=== PATIENT | male | born 1940 | race Caucasian/White ===

== ENCOUNTER 2025-05-15 13:51 | Inpatient (IN) | payer MEDICARE, SELFPAY ==
[2025-05-15 14:42] VITALS: BP 145/67; PULSE 66; RESP 18; TEMP 36.9; O2SAT 90
[2025-05-15] MEDS: prednisoLONE eye drops (5 mL) 1 DROP OPTH.BTL 1 DRP LEFT EYE ×2 (18:03→21:42)
[2025-05-15] MEDS: Sodium Chloride 15ML DROPS 1 DRP LEFT EYE ×2 (18:33→21:42)
--- NOTE | 2025-05-15 18:33 | HP.PCM_ITS ---
HPI - General General Date of Admission: 05/15/25 Date of Service: 05/15/25 Chief Complaint: Here for rehabilitation. HPI Narrative HEATHER FRIAS, is a 84 Male who presents with followin04/27/2025 CT head concerning for NPH, MRI brain with CSF flow study planned for evaluation of NPH. 05/07/2025 Admit to [facility] with failure to thrive. Admit to NICU with left inferior basal ganglion ICH, progressive decline, decreasing function, inability to rise from couch for days to weeks. Worsening confusion, word finding, difficulty. CT head showed small left interior basal ganglion ICH without IVH or significant midline shift. Bilateral lower extremity weakness, impaired balance. Consult neurosurgery, IV fluids, IV Labetalol. No falls, no head trauma, no seizure activity. TTE with bubble study, NPO pending swallow study. Hold DVT prophylaxis, Hold Plavix for ICH. PT/OT/CM. Normal saline IV for hyponatremia. LDL 60, A1c 5.5. 05/06/2025 CT head small left basal ganglion ICH. 05/06/2025 CTA head and neck no stenosis. 05/07/2025 CT head, CTA head ICH unchanged. 05/07/2025 MRI brain evolving small hematoma in the posterior medial left orbital frontal region with similar imaging findings also seen on CT brain. Mild local mass effect, concerning for NPH. Echo LVEF 57%. Bubble study positive. Aorta dilated 4.1cm. Mild aortic regurgitation. 05/12/2025 Sodium 129, managed with 1 liter fluid restriction. Patient full code, not interested in palliative care. 05/12/2025 CT head ICH improved, possible NPH. 05/12/2025 Hold Plavix, restart Aspirin. MRI brain with CSF flow study showed possible NPH> Patient would like SNF rehab, goal of going home. 05/13/2025 Sodium 126, consult Medicine. Pre-CERT for TCU. Check urinalysis for frequency of urination to rule out urinary tract infection. Slept poorly, refusing hypnotics. 05/14/2025 Hold Plavix. Follow up with neurology for possible NPH. Gabapentin 100mg q12 for restless leg syndrome. 1 liter fluid restriction for hyponatremia 2/2 siadh. Etiology likely ischemic stroke with hemorrhagic transformation. 05/15/2025 Admit to TCU with debility, here for rehabilitation, strengthening, prior to discharge home with /son. Kelton Nolasco present at time of interview. MARGIE Baker present at time of interview. [facility] Medical History (Updated 05/15/25 @ 18:[address] Kimo Partida MD) GERD (gastroesophageal reflux disease) Irritable bowel syndrome Hiatal hernia Glaucoma Anemia Cervical spinal stenosis Parkinsonism NPH (normal pressure hydrocephalus) Hyponatremia ICH (intracerebral hemorrhage) Ischemic stroke Debility Home Medications ?Medication ?Instructions ?Recorded ?Last Taken ?Type acetaminophen 325 mg tablet 325 mg PO Q6H PRN pain (sc randy 05/15/25 Unknown History score 1-10) aspirin 81 mg tablet 81 mg PO DAILY blood thinner 05/15/25 Unknown History brimonidine 0.2 %-timolol 0.5 % 1 drp RIGHT EYE Q8 pre ssure in eye 05/15/25 Unknown History eye drops (Combigan) calcium carbonate (Tums) 200 mg PO DAILY PRN dyspepsi a 05/15/25 Unknown History cholecalciferol (vitamin D3) 25 25 mcg PO DAILY supple ment 05/15/25 Unknown History mcg (1,000 unit) capsule cyanocobalamin (vitamin B-12) 50 50 mcg PO DAILY suppl ement 05/15/25 Unknown History mcg tablet (Vitamin B-12) diphenhydramine-zinc acetate 1 1 applic topical Q8H ra sh 05/15/25 Unknown History %-0.1 % topical cream (Anti-Itch (diphenhydramine) with Zinc) gabapentin 100 mg capsule 100 mg PO BID pain 05/15/25 Unknown History heparin (porcine) 5,000 unit/mL 5,000 unit subcut Q8H blood thinner 05/15/25 Unknown History injection solution melatonin 3 mg capsule 3 mg PO QHS PRN sleep Unknown History multivitamin 1 tab PO DAILY supplement Unknown History nitroglycerin 0.4 mg sublingual 0.4 mg sublingual Q5M chest pain 05/15/25 Unknown History tablet pantoprazole 40 mg tablet,delayed 40 mg PO BID reflux 05/15/25 Unknown History release polyvinyl alcohol 1.4 % eye drops 1 drp EACH EYE Q6H P RN dry eyes 05/15/25 Unknown History (Artificial Tears (polyvinyl alcohol)) prednisolone acetate 1 % eye 1 drp LEFT EYE Q6H inflam mation 05/15/25 Unknown History drops,suspension (Pred Forte) psyllium 1 packet PO DAILY bowels Unknown History sodium chloride 1,000 mg soluble 1,000 mg PO BID suppl ement 05/15/25 Unknown History tablet sodium chloride 5 % eye drops 1 drp LEFT EYE 4X/DAY dr jake eyes 05/15/25 Unknown History (Obed 128) tamsulosin 0.4 mg capsule 0.4 mg PO DAILY bladder 04/18 Unknown History trazodone 50 mg tablet 50 mg PO QHS sleep 05/15/25 Unknown History triamcinolone acetonide 0.1 % applic topical BID PRN P RN itch 05/15/25 Unknown History topical cream vitamin B complex (B-Complex 1 tab PO DAILY supplement 05/15/25 Unknown History tablet) Allergy/AdvReac Type Severity Reaction Status Date / Time oxycodone AdvReac mental Verified 05/15/25 15:46 status change tramadol AdvReac Mental Verified 05/15/25 15:46 Status Change Surgical History (Updated 05/15/25 @ 18:[address] Kimo Partida MD) History of total bilateral knee replacement History of glaucoma History of esophagogastroduodenoscopy (EGD) History of colonoscopy Social History (Updated 05/15/25 @ 18:[address] Kimo Partida MD) household members: spouse and other details: son Gaurav lives with them. Smoking Status: Never smoker alcohol intake: never substance use type: does not use ROS Constitutional Constitutional: Reports weakness; Denies chills, fever(s) or weight gain ENT HEENT: Denies headache(s), nasal congestion or nasal discharge Cardiovascular Cardiovascular: Denies chest pain or palpitations Respiratory/Chest Respiratory/Chest: Denies cough, excessive phlegm production or shortness of breath with exertion Gastrointestinal Gastrointestinal: Denies abdominal pain, nausea or vomiting Genitourinary Genitourinary: Denies dysuria Musculoskeletal Musculoskeletal: Denies joint pain or joint swelling Integumentary Integumentary: Denies rash or wounds Neurologic Neurologic: Denies focal weakness, numbness or tingling Psychiatric Psychiatric: Denies anxiety, auditory hallucinations, depression, homicidal ideation or suicidal ideation Vital Signs Vital Signs Vital Signs: 05/15/25 14:42 05/15/25 14:42 Temperature 98.5 F Temperature Source Oral Pulse Rate 66 Pulse Rhythm Regular Pulse Strength Normal (2+) Respiratory Rate 18 18 Respiratory Effort Normal Non-Labored Respiratory Depth Normal Respiratory Pattern Normal Blood Pressure 145/67 H Blood Pressure Mean 93 Blood Pressure Source Monitor Blood Pressure Position Supine Blood Pressure Location Left Arm Pulse Ox 90 Oxygen Delivery Method Room Air Room Air Physical Exam Const Constitutional Narrative: Sleepy, but arouses easily. General Appearance: cooperative HEENT normocephalic Eyes PERRL and EOMs intact bilaterally Neck supple, no JVD and no carotid bruits Resp normal respiratory effort, normal air movement and clear to auscultation bilaterally Cardio regular rate and regular rhythm GI normal to inspection, nondistended, normoactive bowel sounds, non-tender and non-distended Extremity normal capillary refill General Extremity: Negative for edema Skin no rashes or lesions noted General Skin Exam: no breakdown Psych affect normal Appearance: appropriate Assessment & Plan Assessment/Plan (1) Debility: (2) Ischemic stroke: (3) ICH (intracerebral hemorrhage): (4) Hyponatremia: (5) NPH (normal pressure hydrocephalus): (6) Parkinsonism: (7) Cervical spinal stenosis: (8) Anemia: (9) Glaucoma: (10) Hiatal hernia: (11) Irritable bowel syndrome: (12) GERD (gastroesophageal reflux disease): PLAN: Plan 84 year old male with below past medical history hospitalized for failure to thrive 2/2 stroke, ich, complicated by hyponatremia, possible NPH, admitted to TCU with debility, here for rehabilitation, strengthening, prior to discharge home with and son. * Debility - PT/OT. * Pain - Tylenol 325mg q6 prn. * Bowel - Metamucil 1 packet daily. * Adult immunization - Administer pneumonia vaccine, covid vaccine, flu vaccine as appropriate. * DVT prophylaxis - Lovenox 40mg sc daily. * NPH- follow up with Neurology after discharge. * Stroke - Aspirin 81mg daily. * Glaucoma - Brimonidine 1gtt od q8, Timoptic 1gtt od q8. * GERD - Pantoprazole 40mg daily, TUMS 500mg daily prn. * Dry eyes - Artificial tears 1gtt ou q6, Sodium chloride 1gtt os qid. * Vitamin D deficiency - D3 25mcg daily. * Neuropathy - Gabapentin 100mg bid. * Insomnia - Melatonin 3mg qhs. * Nutrition - MVI 1 tablet daily. * Coronary artery disease - NTG 0.4mg sl q5m prn. * Eye inflammation - Prednisolone 1gtt os qid. * Hyponatremia - Sodium chloride 1gm bid, fluid restriction. * BPH - Tamsulosin 0.4mg bid. * Skin irritation - Kenalog cream topical bid prn. * Leg cramps - Vitamin B complex 1 tablet daily. The following psychotropic medication was present on admission: Trazodone 50mg qhs. Psychotropic medication therapy is indicated for a diagnosis of: Insomnia. Based on my clinical evaluation, continuation of the medication is necessary at this time. Gradual dose reduction plan (select one): ____ GDR will be attempted. Will monitor patient symptoms and behaviors in response to GDR. __x__ GRD contraindicated. 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 The following psychotropic medication is being started or the dose in being increased: Mirtazapine 7.5mg qhs. Psychotropic medication therapy is indicated for a diagnosis of: Depression/appetite loss/insomnia. In my professional judgement, medication is necessary because the resident?s symptoms cause significant distress to the resident or a danger to the resident or others. Evaluation for underlying causes including medical illness and pain has been considered. The benefits of the medication are felt to outweigh potential harm. Nonpharmacologic/behavior interventions have been attempted but have not been effective or nonpharmacologic interventions are contraindicated for this patient. Potential benefits and risks of treatment and alternatives have been reviewed with resident/family and the resident/family have accepted psychotropic med ication treatment. Please see nursing documentation.
[2025-05-15 20:41] VITALS: PULSE 76; O2SAT 94
[2025-05-15] MEDS: Heparin Injection (Vial) 5,000 UNIT/ML VIAL 5000 UNIT SC (21:38)
[2025-05-15] MEDS: Timolol 0.5% 5ML OPTH.BTL 1 DRP RIGHT EYE (21:42)
[2025-05-15] MEDS: BRIMONIDINE 0.2% 5ML BOTTLE 1 DRP RIGHT EYE (21:42)
[2025-05-16 02:31] VITALS: PULSE 70; RESP 16; O2SAT 95
[2025-05-16] MEDS: BRIMONIDINE 0.2% 5ML BOTTLE 1 DRP RIGHT EYE ×3 (06:44→22:38)
[2025-05-16] MEDS: Heparin Injection (Vial) 5,000 UNIT/ML VIAL 5000 UNIT SC (06:44)
[2025-05-16] MEDS: Timolol 0.5% 5ML OPTH.BTL 1 DRP RIGHT EYE ×3 (06:44→22:39)
[2025-05-16 07:28] LABS: Hematocrit 35.2 % (40-54); Hemoglobin 11.9 g/dL (13.0-16.5); Immature Granulocytes Count 0.030 X10^3/uL (0.0-0.0); Mean Corp Hgb Conc 33.8 g/dL (32-36); Mean Corpuscular Volume 93.4 fL (80-94); Mean Platelet Vol. 9.0 fl (6.2-12.0); NRBC Flagged by Analyzer 0 % (0-5); Platelet Count 365 K/mm3 (150-450); RBC Distribution Width CV 13.2 % (11.6-14.6); RBC Distribution Width SD 45.2 fl (35.1-43.9); Red Blood Count 3.77 M/mm3 (4.6-6.2); White Blood Count 7.9 K/mm3 (4.4-11.0)
[2025-05-16 08:25] LABS: Anion Gap 7 (5-15); BUN 20 mg/dL (4-19); BUN/Creat Ratio 32.3 RATIO (10-20); Calcium,Total 9.2 mg/dL (7.6-11.0); Carbon Dioxide 27.1 mmol/L (21.0-32.0); Chloride 97 mmol/L (98-108); Glucose 99 mg/dL (70-99); Potassium 4.2 mmol/L (3.3-5.1)
--- NOTE | 2025-05-16 09:50 | CASEMGMT ---
Social Work SW presented to room to complete initial assessment. Introduced self and role. Son, Gaurav, at bedside and pt granted permission to speak with son, as he was very tired. Pt answered pt specific questions before falling asleep. Verified contacts. Pt confirmed code status as full code. SW educated to [facility] insurance and review process, with 3-day notice issued with DC date. SW spoke with son at length. Son was very knowledgeable and provided PMH. Son stated they were searching for a new PCP. SW provided HealthCare Provider Directory. At this time, Dr. Partida entered room to complete assessment. Dr. Partida offered to be pt's new PCP, if he chooses. After Dr. Partida exiting, SW finished answering son's questions. SW broached possible depression and SW will monitor for possible intervention, as pt has been increasingly tired, sleeping during the day, not sleeping well at night, poor appetite, and loss of motivation and interest in doing things. Son noted that prior to DC, PA from previous hospital mentioned medication like Remeron. Son was agreeable to that intervention. SW to update the Dr. Melara appreciative. SW will continue to follow. - SW provided update to and inquired about possible sleep apnea. Olivia Colon PRESSURE WELDER ADVERTISING COLUMNIST
[2025-05-16 10:56] VITALS: BMI 20.5
[2025-05-16 11:08] VITALS: BP 102/60; PULSE 110; RESP 16; TEMP 36.4; O2SAT 95
[2025-05-16] MEDS: Aspirin E.C. 81 MG Tablet PO (11:13)
[2025-05-16] MEDS: Sodium Chloride 15ML DROPS 1 DRP LEFT EYE ×4 (11:13→20:21)
[2025-05-16] MEDS: Vitamin B Comp W-C Capsule 1 CAP PO (11:14)
[2025-05-16] MEDS: prednisoLONE eye drops (5 mL) 1 DROP OPTH.BTL 1 DRP LEFT EYE ×4 (11:14→20:10)
[2025-05-16] MEDS: Cholecalciferol (VIT D3) 25 MCG TABLET (1,000 UNITS) PO (11:15)
[2025-05-16] MEDS: Psyllium 1 PACKET PO (11:15)
[2025-05-16] MEDS: Tuberculin,Purif.prot.deriv. 50 TU/ML Vial 0.1 ML ID (13:35)
--- NOTE | 2025-05-16 14:56 | PHA.CONS_ITS ---
Documented by User: Mandeep Feliciano 05/16/25 15:20 TCU RX Drug Regimen Review Subjective/Objective Subjective/Objective Subjective: TCU admission note. 84 year old male with below past medical history hospitalized for failure to thrive 2/2 stroke, ich, complicated by hyponatremia, possible NPH, admitted to TCU with debility, here for rehabilitation, strengthening, prior to discharge home with and son. Objective: Allergies oxycodone Adverse Reaction (Verified 05/15/25 15:46) mental status change tramadol Adverse Reaction (Verified 05/15/25 15:46) Mental Status Change Current Medications Generic Name Dose Route Start Last Admin Trade Name Freq PRN Reason Stop Dose Admin Acetaminophen 325 mg 05/15/25 15:04 Acetaminophen 325 Mg Tablet PO Q6H PRN pain (scale score 1-10) Artificial Tears 1 drp 05/15/25 16:02 Carboxymethylcellulose Sodium 1 Drp Drops OPHTHALMIC Q6H PRN dry eyes Aspirin 81 mg 05/16/25 08:00 05/16/25 11:13 Aspirin E.C. 81 Mg Tablet PO 81 mg BREAKFAST NICA Administration Brimonidine Tartrate 1 drp 05/15/25 22:00 05/16/25 13:43 Brimonidine 0.2% 5ml Bottle RIGHT EYE 1 drp Q8 NICA Administration Calamine/Phenol 1 applic 05/15/25 22:00 05/16/25 11:14 Menthol/Lanolin/Calamine/Znox 113 Gm Tube TOPICAL 1 applic BID NICA Administration Protocol Calcium Carbonate 500 mg 05/15/25 15:04 Calcium Carbonate 500 Mg Tablet PO DAILY PRN DYSPEPSIA Cholecalciferol 25 mcg 05/16/25 10:00 05/16/25 11:15 Cholecalciferol (Vit D3) 25 Mcg Tablet (1,000 Units) PO 25 mcg DAILY NICA Administration Enoxaparin Sodium 40 mg 05/16/25 11:00 05/16/25 13:35 Enoxaparin 40 Mg/0.4 Ml Syringe SC 40 mg DAILY@0600 NICA Administration Gabapentin 100 mg 05/15/25 22:00 05/16/25 11:24 Gabapentin 100 Mg Capsule PO 100 mg BID NICA Administration Melatonin 3 mg 05/15/25 15:04 Melatonin 3 Mg Tablet PO QHS PRN SLEEP Mirtazapine 7.5 mg 05/15/25 22:00 05/15/25 21:40 Mirtazapine 15 Mg Tablet PO 7.5 mg QHS NICA Administration Multivitamins 1 tablet 05/16/25 08:00 05/16/25 11:13 Multivitamins,Therapeutic Tablet PO 1 tablet DAILYCM NICA Administration Multivitamins 1 cap 05/16/25 10:00 05/16/25 11:14 Vitamin B Comp W-C Capsule PO 1 cap DAILY NICA Administration Nitroglycerin 0.4 mg 05/15/25 18:56 Nitroglycerin (Inpatient Use) 0.4 Mg Tab.Subl SL Q5M PRN CARDIAC/CHEST PAIN Pantoprazole Sodium 40 mg 05/16/25 10:00 05/16/25 11:15 Pantoprazole Sodium 40 Mg Tablet PO 40 mg DAILY NICA Administration Prednisolone Acetate 1 drp 05/15/25 16:00 05/16/25 13:36 Prednisolone Eye Drops (5 Ml) 1 Drop Opth.Btl LEFT EYE 1 drp 0800,1200,1600,2000 NICA Administration Psyllium Hydrophilic Mucilloid 1 packet 05/16/25 10:00 05/16/25 11:15 Psyllium 1 Packet PO 1 packet DAILY NICA Administration Sodium Chloride 10 - 40 ml 05/15/25 15:04 0.9% Saline Lock 10 Ml Syringe IV UD PRN SALINE FLUSH Sodium Chloride 1 drp 05/15/25 16:00 05/16/25 13:36 Sodium Chloride 15ml Drops LEFT EYE 1 drp 0800,1200,1600,2000 NICA Administration Sodium Chloride 1 gm 05/15/25 22:00 05/16/25 11:15 Sodium Chloride 1 Gm Tablet PO 1 gm BID NICA Administration Tamsulosin HCl 0.4 mg 05/16/25 10:00 05/16/25 11:14 Tamsulosin Hcl 0.4 Mg Capsule PO 0.4 mg DAILY NICA Administration Timolol Maleate 1 drp 05/15/25 22:00 05/16/25 13:43 Timolol 0.5% 5ml Opth.Btl RIGHT EYE 1 drp Q8 NICA Administration Trazodone HCl 50 mg 05/15/25 22:00 05/15/25 21:39 Trazodone 50 Mg Tablet PO 50 mg QHS NICA Administration Triamcinolone Acetonide 0.1 applic 05/15/25 15:09 Triamcinolone Acetonide 0.1% Cream 15 Gm TOPICAL BID PRN PRN itch Protocol Tuberculin PPD 0.1 ml 05/23/25 10:00 Tuberculin,Purif.Prot.Deriv. 50 Tu/Ml Vial ID 05/23/25 10:01 X1 ONE Problem List GERD (gastroesophageal reflux disease) (Acute) Irritable bowel syndrome (Acute) Hiatal hernia (Acute) Glaucoma (Acute) Anemia (Acute) Cervical spinal stenosis (Acute) Parkinsonism (Acute) NPH (normal pressure hydrocephalus) (Acute) Hyponatremia (Acute) ICH (intracerebral hemorrhage) (Acute) Ischemic stroke (Acute) Debility (Acute) Vital Signs Temp Pulse Resp BP Pulse Ox O2 Del Method O2 Flow Rate 97.5 F L 110 H 16 102/60 95 Room Air 0 05/16/25 11:08 05/16/25 11:08 05/16/25 11:08 05/16/25 11:08 05/16/25 11:08 05/16/25 11:08 05/15/25 20:41 FiO2 21 05/15/25 20:41 Oxygen Flow Rate (L/min) 0 Oxygen Delivery Method Room Air Weight: 68.674 kg Body Mass Index (BMI) 20.5 Sodium 131 mmol/L (133-145) L 05/16/25 07:15 Potassium 4.2 mmol/L (3.3-5.1) 05/16/25 07:15 Chloride 97 mmol/L (98-108) L 05/16/25 07:15 Carbon Dioxide 27.1 mmol/L (21.0-32.0) 05/16/25 07:15 Anion Gap 7 (5-15) 05/16/25 07:15 BUN 20 mg/dL (4-19) H 05/16/25 07:15 Creatinine 0.62 mg/dL (0.70-1.20) L 05/16/25 07:15 Est GFR (MDRD) Non-Af 93 (>60) 05/16/25 07:15 BUN/Creatinine Ratio 32.3 RATIO (10-20) H 05/16/25 07:15 Glucose 99 mg/dL (70-99) 05/16/25 07:15 Assessment/Plan: 1. Acetaminophen 325 mg PO Q6H PRN pain. The patient has not required any PRN doses of acetaminophen so far this admission. Please continue to monitor pain levels, PRN medication usage, and LFTs (no recent LFTs documented). 2. Bowel: psyllium 1 packet PO daily. The patient's last bowel movement was documented on 05/15/25. Please continue to monitor for constipation, diarrhea, and bowel movements. 3. DVT prophylaxis: enoxaparin 40 mg SC daily. Please continue to monitor for s/s of a DVT such as pain/erythema/edema in an extremity, for s/s of bleeding/excessive bruising, hemoglobin levels (Hgb = 11.9 g/dL on 05/16/25), platelet counts (Plt = 365 K/mm3 on 05/16/25), and renal function (serum creatinine = 0.62 mg/dL with creatinine clearance ~ 64.5 mL/min on 05/16/25). 4. History of stroke: aspirin 81 mg PO daily. Please continue to monitor for s/s of stroke, for bleeding/excessive bruising, and for GI distress with aspirin administration as well as platelet counts (Plt = 365 K/mm3 on 05/16/25). 5. GERD: pantoprazole 40 mg PO daily, TUMS 500 mg PO daily PRN dyspepsia. The patient has not required any PRN doses of TUMS so far this admission. Please continue to monitor for s/s of GERD, for diarrhea that could indicate clostridium difficile infection, and for s/s of bone resorption such as fractures. 6. Neuropathy: gabapentin 100 mg PO BID. Please continue to monitor for nerve pain, renal function (serum creatinine = 0.62 mg/dL with creatinine clearance ~ 64.5 mL/min on 05/16/25), for lower extremity edema, and for drowsiness/dizziness/syncope/ataxia/falls. 7. Glaucoma: brimonidine 1 drop in right eye Q8, timolol 0.5% 1 drop in right eye Q8. Please continue to monitor for s/s of worsening vision, eye health, for dry eyes, and heart rates (recent range = 66-110 beats/min). 8. Dry eyes: artificial tears 1 drop in each eye Q6 PRN dry eyes, sodium chloride 1 drop in left eye 4x daily. The patient has not required any PRN doses of artificial tears so far this admission. Please continue to monitor for dry eyes and for PRN medication administration. 9. Eye inflammation: prednisolone 1 drop in the left eye BID. Please continue to monitor for eye redness and inflammation. 10. Coronary artery disease: nitroglycerin 0.4 mg SL Q5M PRN chest pain. The patient has not required any PRN doses of nitroglycerin so far this admission. Please continue to monitor for s/s of CAD, chest pain, shortness of breath, and PRN medication administration. 11. BPH: tamsulosin 0.4 mg PO daily. Please continue to monitor for s/s of urinary retention, urine stream, for s/s of orthostasis, and blood pressures (recent range = 102-145/60-67 mmHg). 12. Hyponatremia: sodium chloride 1 gram PO BID. Please continue to monitor hydration status and sodium levels (Na = 131 mmol/L on 05/16/25). 13. Vitamin D deficiency: cholecalciferol 25 mcg PO daily. Please continue to monitor for s/s of vitamin D deficiency and vitamin D levels (no recent levels documented). 14. Leg cramps: vitamin B complex 1 tablet PO daily. Please continue to monitor for leg cramps. 15. Insomnia: melatonin 3 mg PO QHS. Please continue to monitor for insomnia, for drowsiness and for dizziness. 16. Nutrition: multivitamin 1 tablet PO daily. Please continue to monitor overall nutritional status. 17. Skin irritation: triamcinolone 0.1% 1 application topically BID PRN itching, calmoseptine 1 application topically BID. The patient has not required any triamcinolone administrations so far this admission. Please continue to monitor for dry skin and for PRN medication administration. Assessment/Plan for indications treated with psychotropic medications: 1. Insomnia: trazodone 50 mg PO QHS. Please see provider note regarding stable chronic long-term use GDR not recommended. Monitor for efficacy including resident symptoms, behaviors and indications of distress. Monitor for insomnia and drowsiness. Monitor for tolerability including mental status, cognition, excessive sleepiness, withdrawal or decreased participation in activities and decline in physical functioning. Maximize use of nonpharmacologic/behavioral interventions to facilitate dose reduction or discontinuation as appropriate. Please evaluate the appropriateness of GDR unless contraindicated. If appropriate, GDR should be attempted in 2 separate quarters within the first year of use or admission to TCU. If GDR attempted, monitor resident symptoms/behaviors. Monitor for diarrhea, nausea, headache, anxiety or drowsiness, suicidal thoughts or behaviors (Boxed Warning), symptoms of bleeding, symptoms of serotonin syndrome (including agitation, confusion, hyperreflexia, rigidity/myoclonus, tremor, tachycardia, tachypnea), sodium levels (last Na = 131 mmol/L on 05/16/25). 2. Depression: mirtazapine 7.5 mg PO QHS. Monitor for efficacy including resident symptoms, behaviors and indications of distress. Monitor for depression, SI, and anhedonia. Monitor for tolerability including mental status, cognition, excessive slee piness, withdrawal or decreased participation in activities and decline in physical functioning. Maximize use of nonpharmacologic/behavioral interventions to facilitate dose reduction or discontinuation as appropriate. Please evaluate the appropriateness of GDR unless contraindicated. If appropriate, GDR should be attempted in 2 separate quarters within the first year of use or admission to TCU. If GDR attempted, monitor resident symptoms/behaviors. Monitor for drowsiness, dizziness or confusion, appetite and body weight (can cause weight gain), dry mouth, abnormal movements/movement disorders (including akathisia, dyskinesia, acute dystonia or restless leg syndrome), suicidal thoughts or behaviors (Boxed Warning). Monitor for constipation. Last documented BM = 05/15/25. Monitor lipids as indicated (can increase serum cholesterol and triglycerides). No recent fasting lipid panel. Monitor blood pressure. BP range since admission = 102-145/60-67 mmHg. Monitor for orthostatic hypotension, including postural dizziness, syncope or falls. Check orthostatic vital signs if suspicion of orthostasis. Medical chart and medication regimen reviewed. The following medication irregularities or issues were identified: No recommendations for resident at this time. Date Date of Note: 05/16/25 Documented by User: Dr. Kimo Partida MD 05/16/25 15:24 TCU RX Drug Regimen Review Provider Comments Provider responsibility Provider Comments to Recommendations by Pharmacy Agree
--- NOTE | 2025-05-16 15:42 | CHAPLAIN ---
Type of Pastoral Visit _x__ Initial Visit ___ Follow-up Visit ___ On-call Visit ___ General Patient Visit ___ Spiritual Assessment ___ Family Conference ___ Bereavement ___ Rapid Response ___ Code Blue ___ Other (describe below) Pastoral Care Referral From _x__ Patient ___ Family ___ Nurse ___ Physician ___ Jig Maker ___ Delicatessen Goods Stock Clerk ___ Other (describe below) Sacrament/Intervention _x__ Active listening ___ Anointing ___ Baptist ___ Bereavement ___ Communion _x__ Jazzy exploration ___ ___ Life review _x__ Prayer ___ Reconciliation ___ Sacrament of Sick _x__ Supportive presence ___ Wedding ___ Other (describe below) Pastoral Comments patient and spouse are in the room; pt has recently finished PT and OT and is tired but alert and willing to have a short visit; spouse gives more details of the patient's recent hospitalizations and treatments; pt is here after brain bleeds and weakening condition; pt is welcoming and speaks of his zoroastrianism connection and desire for prayer; both welcome future visits;
[2025-05-16] MEDS: 0.9% Saline Lock 10 ML Syringe IV (22:44)
[2025-05-17] MEDS: BRIMONIDINE 0.2% 5ML BOTTLE 1 DRP RIGHT EYE ×3 (06:42→20:47)
[2025-05-17] MEDS: Timolol 0.5% 5ML OPTH.BTL 1 DRP RIGHT EYE ×3 (06:44→20:47)
[2025-05-17] MEDS: Sodium Chloride 15ML DROPS 1 DRP LEFT EYE ×4 (08:13→20:52)
[2025-05-17 08:17] VITALS: BP 158/69; PULSE 67; RESP 16; TEMP 36.3; O2SAT 94
[2025-05-17] MEDS: Psyllium 1 PACKET PO (10:33)
[2025-05-17] MEDS: Aspirin E.C. 81 MG Tablet PO (10:33)
[2025-05-17] MEDS: Vitamin B Comp W-C Capsule 1 CAP PO (10:33)
[2025-05-17] MEDS: Cholecalciferol (VIT D3) 25 MCG TABLET (1,000 UNITS) PO (10:34)
--- NOTE | 2025-05-17 12:06 | NURSING ---
pt c/o LT leg pain difficulty sleeping lastnight, so pt had harder time getting up this AM for brkfst. pt requesting neurontin be increased to TID. dr cadena notified, new order received.
[2025-05-17] MEDS: prednisoLONE eye drops (5 mL) 1 DROP OPTH.BTL 1 DRP LEFT EYE ×3 (12:38→20:45)
--- NOTE | 2025-05-17 15:51 | NURSING ---
Son here noticing that pt groggier today, concerned that it may be from not sleeping last night d/t pain or effects from new medications (remeron & trazadone). son requesting that neurontin be changed to 100mg in AM & 200mg at HS. does not want to adjust new medications at this time. dr cadena notified. new orders received. son & pt updated.
[2025-05-17 22:00] VITALS: PULSE 100; RESP 16; O2SAT 98
--- NOTE | 2025-05-18 00:22 | NURSING ---
Addendum entered by Holli Marinelli 05/18/25 01:30 EDT: Spouse (Laura) speaks with this nurse prior to leaving unit to return home, states son wishes to remain at patient bedside. Spouse states patient has been declining for a while and requests trazodone no longer be discontinued due to patient hx of difficulty sleeping, spouse declines any change to sleep med at this time until speaking with Dr. Patrida on Monday. Spouse expresses thanks for patient care. No further concerns voiced at this time. Original Note: (Laura) and son at bedside, update on patient provided upon request, spouse requesting trazodone be discontinued due to patient sleeping all the time. Patient in no apparent distress. Presents in bed, with baseball game on television, reponds to verbal stimuli, pleasant and cooperative. Responds appropriatley to questions. A&OX3. Spouse requesting phone call on patient prognosis from Dr. Partida on Monday. Spouse expresses thanks for update. Written communication left for Dr. Partida regarding spouse requests.
[2025-05-18 08:54] VITALS: BP 121/64; PULSE 85; RESP 17; TEMP 36.6; O2SAT 93
[2025-05-18] MEDS: Cholecalciferol (VIT D3) 25 MCG TABLET (1,000 UNITS) PO (08:59)
[2025-05-18] MEDS: Aspirin E.C. 81 MG Tablet PO (08:59)
[2025-05-18] MEDS: Vitamin B Comp W-C Capsule 1 CAP PO (08:59)
[2025-05-18] MEDS: Sodium Chloride 15ML DROPS 1 DRP LEFT EYE ×4 (09:00→20:13)
[2025-05-18] MEDS: Psyllium 1 PACKET PO (09:00)
[2025-05-18] MEDS: prednisoLONE eye drops (5 mL) 1 DROP OPTH.BTL 1 DRP LEFT EYE ×4 (09:00→20:08)
[2025-05-18] MEDS: BRIMONIDINE 0.2% 5ML BOTTLE 1 DRP RIGHT EYE ×3 (09:07→20:10)
[2025-05-18] MEDS: Timolol 0.5% 5ML OPTH.BTL 1 DRP RIGHT EYE ×3 (09:07→20:10)
--- NOTE | 2025-05-18 10:29 | NURSING ---
pt son concerned that remeron causing pt mental status change/confusion recently. DR Partida notified, new orde to DC remeron. also family requesting to speak with him.
[2025-05-18 17:08] VITALS: RESP 18; O2SAT 95
[2025-05-19 04:19] VITALS: PULSE 89; RESP 16; O2SAT 96
[2025-05-19 06:19] LABS: Anion Gap 8 (5-15); BUN 23 mg/dL (4-19); BUN/Creat Ratio 43.5 RATIO (10-20); Calcium,Total 8.5 mg/dL (7.6-11.0); Carbon Dioxide 24.3 mmol/L (21.0-32.0); Chloride 99 mmol/L (98-108); Estimated Creatinine Clearance 64.38 ml/min (50-250); Glucose 102 mg/dL (70-99); Potassium 4.2 mmol/L (3.3-5.1)
[2025-05-19 08:15] LABS: Hematocrit 33.5 % (40-54); Hemoglobin 11.3 g/dL (13.0-16.5); Immature Granulocytes Count 0.030 X10^3/uL (0.0-0.0); Mean Corp Hgb Conc 33.7 g/dL (32-36); Mean Corpuscular Volume 94.4 fL (80-94); Mean Platelet Vol. 9.4 fl (6.2-12.0); NRBC Flagged by Analyzer 0 % (0-5); Platelet Count 382 K/mm3 (150-450); RBC Distribution Width CV 13.2 % (11.6-14.6); RBC Distribution Width SD 45.9 fl (35.1-43.9); Red Blood Count 3.55 M/mm3 (4.6-6.2); White Blood Count 10.3 K/mm3 (4.4-11.0)
--- NOTE | 2025-05-19 08:46 | NURSING ---
called insurance for auth for CT- no auth needed reference #[id number] order faxed to CT
--- NOTE | 2025-05-19 09:30 | NURSING ---
Addendum entered by Remedios Villalobos 05/19/25 11:11: returned [id number] via bed Original Note: pt left unit for CT scan
[2025-05-19 10:53] VITALS: BP 100/64; PULSE 105; RESP 17; TEMP 37.1; O2SAT 90
[2025-05-19] MEDS: BRIMONIDINE 0.2% 5ML BOTTLE 1 DRP RIGHT EYE ×3 (10:59→20:37)
[2025-05-19] MEDS: Aspirin E.C. 81 MG Tablet PO (11:00)
[2025-05-19] MEDS: Sodium Chloride 15ML DROPS 1 DRP LEFT EYE ×4 (11:01→20:43)
[2025-05-19] MEDS: prednisoLONE eye drops (5 mL) 1 DROP OPTH.BTL 1 DRP LEFT EYE ×4 (11:01→20:35)
[2025-05-19] MEDS: Timolol 0.5% 5ML OPTH.BTL 1 DRP RIGHT EYE ×3 (11:02→20:38)
[2025-05-19] MEDS: Cholecalciferol (VIT D3) 25 MCG TABLET (1,000 UNITS) PO (11:04)
[2025-05-19] MEDS: Psyllium 1 PACKET PO (11:04)
[2025-05-19 12:04] LABS: Mucous, Urine 0 SEEN /hpf (<or=2+); Red Blood Cells-Urine 0 SEEN /hpf (0-5)
[2025-05-19 12:09] LABS: Color, Urine Yellow (Yellow); Glucose, Dipstick Normal (Normal); Ketone-Dipstick Negative (Negative); Leukocyte Esterase-Dipstick Negative /ul (Negative); Nitrite-Dipstick Negative (Negative); Occult Blood-Urine 25 /ul (Negative); Protein-Dipstick 30 mg/dl (Negative); Specific Gravity, Urine 1.015 (1.002-1.030); Urine Bilirubin Dipstick Negative (Negative)
[2025-05-19 12:34] LABS: Squamous Epithelial Cells - UA 0-5 SEEN /hpf (0-5)
[2025-05-20 09:55] LABS: Anion Gap 8 (5-15); BUN 26 mg/dL (4-19); BUN/Creat Ratio 38.6 RATIO (10-20); Calcium,Total 8.8 mg/dL (7.6-11.0); Carbon Dioxide 26.0 mmol/L (21.0-32.0); Chloride 100 mmol/L (98-108); Estimated Creatinine Clearance 64.38 ml/min (50-250); Glucose 138 mg/dL (70-99); Potassium 4.0 mmol/L (3.3-5.1)
[2025-05-20 10:00] VITALS: PULSE 87; RESP 18; O2SAT 94
[2025-05-20] MEDS: Aspirin E.C. 81 MG Tablet PO (10:49)
[2025-05-20] MEDS: BRIMONIDINE 0.2% 5ML BOTTLE 1 DRP RIGHT EYE ×3 (10:49→21:02)
[2025-05-20] MEDS: Psyllium 1 PACKET PO (10:50)
[2025-05-20] MEDS: Sodium Chloride 15ML DROPS 1 DRP LEFT EYE ×3 (10:53→21:13)
[2025-05-20] MEDS: prednisoLONE eye drops (5 mL) 1 DROP OPTH.BTL 1 DRP LEFT EYE ×3 (10:53→21:00)
[2025-05-20] MEDS: Cholecalciferol (VIT D3) 25 MCG TABLET (1,000 UNITS) PO (10:54)
[2025-05-20] MEDS: Timolol 0.5% 5ML OPTH.BTL 1 DRP RIGHT EYE ×3 (10:57→21:03)
[2025-05-20 16:00] VITALS: BP 125/65; PULSE 87; RESP 18; TEMP 37.1; O2SAT 94
[2025-05-21 08:01] LABS: Anion Gap 9 (5-15); BUN 22 mg/dL (4-19); BUN/Creat Ratio 40.5 RATIO (10-20); Calcium,Total 8.9 mg/dL (7.6-11.0); Carbon Dioxide 24.5 mmol/L (21.0-32.0); Chloride 99 mmol/L (98-108); Estimated Creatinine Clearance 64.38 ml/min (50-250); Glucose 95 mg/dL (70-99); Potassium 4.2 mmol/L (3.3-5.1)
[2025-05-21 08:51] VITALS: BP 136/72; PULSE 119; RESP 16; TEMP 36.8; O2SAT 97
[2025-05-21] MEDS: prednisoLONE eye drops (5 mL) 1 DROP OPTH.BTL 1 DRP LEFT EYE ×4 (08:55→20:18)
[2025-05-21] MEDS: Cholecalciferol (VIT D3) 25 MCG TABLET (1,000 UNITS) PO (08:56)
[2025-05-21] MEDS: Aspirin E.C. 81 MG Tablet PO (08:56)
[2025-05-21] MEDS: Sodium Chloride 15ML DROPS 1 DRP LEFT EYE ×4 (08:56→20:23)
[2025-05-21] MEDS: Psyllium 1 PACKET PO (08:57)
[2025-05-21] MEDS: Timolol 0.5% 5ML OPTH.BTL 1 DRP RIGHT EYE ×4 (09:08→20:20)
[2025-05-21] MEDS: BRIMONIDINE 0.2% 5ML BOTTLE 1 DRP RIGHT EYE ×3 (09:08→20:21)
--- NOTE | 2025-05-21 10:41 | CASEMGMT ---
Social Work IDT met with patient, and son for care plan meeting. Discussed patient's progress in PT/OT/ST/SN/RDN. Educated to [facility] insurance with [employer] 06/01 and continued stay is not guaranteed. Provided pt/family with written communication of insurance process and copay coverage during stay. Pt is currently dependent on all care and the goal is for pt to make further improvements in therapy and medical care prior to DC. SW observed has hand tremors, thus, unsure of steadiness to assist pt. Family voiced they want pt to be independent/SBA with toileting, transfers and mobility throughout the house. Family states pt is a and connected with the ID. SW inquired about which clinic and offered to contact to determine assistance available for DC planning. Pt is active with [facility]. SW to inquire. Will continue to follow for DC planning. Olivia Colon HAND BRUSH FILLER ADHESION TESTER
--- NOTE | 2025-05-21 12:06 | CASEMGMT ---
BIMS () and PHQ9 (). Pt's and son were present in the room and pt agreeable to complete assessments with family present. SW spoke with pt regarding feelings of depression. SW broached the topic of medication, and states that medications have been tried and have had adverse affects on pt. Pt states he is feeling down because he does not do anything worth while. Pt and family states pt feels better when he is in therapy and engaged in activity, but feels worse when in his room with little to engage his mind. Team meeting to follow SW visit. SW encouraged pt and family to talk to merit system director in team meeting to help find engaging things to do while not in therapy. Hand off provided to KYLER Baker. TIM Lux
--- NOTE | 2025-05-21 12:10 | NURSING ---
Addendum entered by Remedios Villalobos 05/21/25 12:16: Family at bedside, agree to hold off for now. Original Note: Offered covid vaccine, VIS provided. Resident declines.
--- NOTE | 2025-05-21 15:56 | NURSING ---
Jukebox Checker Note; Activity Asset: Dusty Mccartney has stated due to his vision it is hard for him to do activities he liked in the past. He is a fan of anything baseball and listens to it on tv. His family is aware of his activity wishes and was informed of the dayroom and having him sit out there during the day and for meals if he would like. He welcomes visits from the manufacturing mechanic and therapy dog when avaliable. Staff will remind him of weekly activities and respect his right to say no.
--- NOTE | 2025-05-21 18:49 | NURSING ---
and son requesting that pt be placed back on his Vit B & multivitamin. asking about podiatry consult d/t painful RT toes, redness noted. impeding therapy sessions. new order for podiatry consult. son updated on new orders
[2025-05-21 20:00] VITALS: PULSE 99; RESP 16; O2SAT 99
[2025-05-22 08:29] VITALS: BP 155/77; PULSE 63; RESP 16; TEMP 37.1; O2SAT 94
--- NOTE | 2025-05-22 08:30 | NURSING ---
pt continent of bowel and bladder via bedpan. pericare provided, pt requesting to rest longer, states he did not sleep well last night. eye gtts given and will return for meds when pt more alert and ready. refused to eat brkfst at this time, would like to eat later. positioned on LT side, call light in reach.
[2025-05-22] MEDS: prednisoLONE eye drops (5 mL) 1 DROP OPTH.BTL 1 DRP LEFT EYE ×4 (08:31→20:08)
[2025-05-22] MEDS: Sodium Chloride 15ML DROPS 1 DRP LEFT EYE ×4 (08:31→20:13)
[2025-05-22] MEDS: BRIMONIDINE 0.2% 5ML BOTTLE 1 DRP RIGHT EYE ×3 (08:32→20:09)
[2025-05-22] MEDS: Timolol 0.5% 5ML OPTH.BTL 1 DRP RIGHT EYE ×3 (08:32→20:10)
[2025-05-22] MEDS: Psyllium 1 PACKET PO (10:08)
[2025-05-22] MEDS: Aspirin E.C. 81 MG Tablet PO (10:09)
[2025-05-22] MEDS: Cholecalciferol (VIT D3) 25 MCG TABLET (1,000 UNITS) PO (10:09)
[2025-05-22] MEDS: Vitamin B Comp W-C Capsule 1 CAP PO (10:09)
[2025-05-22 14:37] VITALS: PULSE 63; RESP 16; O2SAT 94
--- NOTE | 2025-05-23 04:28 | NURSING ---
written communication left for Dr. Partida regarding patient rep Gaurav's request for RTN tylenol and doxepin to be changed to PRN
[2025-05-23 05:57] LABS: Hematocrit 32.3 % (40-54); Hemoglobin 10.8 g/dL (13.0-16.5); Immature Granulocytes Count 0.040 X10^3/uL (0.0-0.0); Mean Corp Hgb Conc 33.4 g/dL (32-36); Mean Corpuscular Volume 95.8 fL (80-94); Mean Platelet Vol. 9.2 fl (6.2-12.0); NRBC Flagged by Analyzer 0 % (0-5); Platelet Count 389 K/mm3 (150-450); RBC Distribution Width CV 13.2 % (11.6-14.6); RBC Distribution Width SD 47.2 fl (35.1-43.9); Red Blood Count 3.37 M/mm3 (4.6-6.2); White Blood Count 11.4 K/mm3 (4.4-11.0)
[2025-05-23 06:17] LABS: Anion Gap 8 (5-15); BUN 25 mg/dL (4-19); BUN/Creat Ratio 43.8 RATIO (10-20); Calcium,Total 8.8 mg/dL (7.6-11.0); Carbon Dioxide 24.6 mmol/L (21.0-32.0); Chloride 103 mmol/L (98-108); Estimated Creatinine Clearance 64.38 ml/min (50-250); Glucose 104 mg/dL (70-99); Potassium 4.0 mmol/L (3.3-5.1)
[2025-05-23 09:59] VITALS: BP 122/63; PULSE 103; RESP 17; TEMP 36.5; O2SAT 95
--- NOTE | 2025-05-23 09:59 | NURSING ---
Personal Care Aid Note; MDS for 05/22/2025 Complete
[2025-05-23] MEDS: Aspirin E.C. 81 MG Tablet PO (10:07)
[2025-05-23] MEDS: Psyllium 1 PACKET PO (10:07)
[2025-05-23] MEDS: Vitamin B Comp W-C Capsule 1 CAP PO (10:07)
[2025-05-23] MEDS: Tuberculin,Purif.prot.deriv. 50 TU/ML Vial 0.1 ML ID (10:08)
[2025-05-23] MEDS: BRIMONIDINE 0.2% 5ML BOTTLE 1 DRP RIGHT EYE ×3 (10:08→21:05)
[2025-05-23] MEDS: Cholecalciferol (VIT D3) 25 MCG TABLET (1,000 UNITS) PO (10:08)
[2025-05-23] MEDS: prednisoLONE eye drops (5 mL) 1 DROP OPTH.BTL 1 DRP LEFT EYE ×4 (10:09→21:03)
[2025-05-23] MEDS: Sodium Chloride 15ML DROPS 1 DRP LEFT EYE ×4 (10:09→21:10)
[2025-05-23] MEDS: Timolol 0.5% 5ML OPTH.BTL 1 DRP RIGHT EYE ×3 (10:09→21:05)
--- NOTE | 2025-05-23 11:26 | CON.PCM_ITS ---
HPI Consult Data Date of Consult: 05/23/25 HPI Narrative Reason for Consultation: Long, thick toenails HPI Narrative: HEATHER FRIAS, is a 84 M was seen as a new patient for long, thickened, yellow toenails 1,2,3,4,5 bilateral, he has neuropathy, [facility] but has not been seen since October per patient. Podiatry was consulted by Dr. Partida. Patient is in TCU, sitting in chair, with his son visiting. Patient wears bilateral AFOs, he has diffuse weakness in bilateral lower extremities. He has chronic diffuse dry skin bilateral foot as well. [facility] Medical History (Updated 05/15/25 @ 18:[address] Kimo Partida MD) GERD (gastroesophageal reflux disease) Irritable bowel syndrome Hiatal hernia Glaucoma Anemia Cervical spinal stenosis Parkinsonism NPH (normal pressure hydrocephalus) Hyponatremia ICH (intracerebral hemorrhage) Ischemic stroke Debility Home Medications ?Medication ?Instructions ?Recorded ?Last Taken ?Type acetaminophen 325 mg tablet 325 mg PO Q6H PRN pain (sc randy 05/15/25 Unknown History score 1-10) aspirin 81 mg tablet 81 mg PO DAILY blood thinner 05/15/25 Unknown History brimonidine 0.2 %-timolol 0.5 % 1 drp RIGHT EYE Q8 pre ssure in eye 05/15/25 Unknown History eye drops (Combigan) calcium carbonate (Tums) 200 mg PO DAILY PRN dyspepsi a 05/15/25 Unknown History cholecalciferol (vitamin D3) 25 25 mcg PO DAILY supple ment 05/15/25 Unknown History mcg (1,000 unit) capsule cyanocobalamin (vitamin B-12) 50 50 mcg PO DAILY suppl ement 05/15/25 Unknown History mcg tablet (Vitamin B-12) diphenhydramine-zinc acetate 1 1 applic topical Q8H ra sh 05/15/25 Unknown History %-0.1 % topical cream (Anti-Itch (diphenhydramine) with Zinc) gabapentin 100 mg capsule 100 mg PO BID pain 05/15/25 Unknown History heparin (porcine) 5,000 unit/mL 5,000 unit subcut Q8H blood thinner 05/15/25 Unknown History injection solution melatonin 3 mg capsule 3 mg PO QHS PRN sleep Unknown History multivitamin 1 tab PO DAILY supplement Unknown History nitroglycerin 0.4 mg sublingual 0.4 mg sublingual Q5M chest pain 05/15/25 Unknown History tablet pantoprazole 40 mg tablet,delayed 40 mg PO BID reflux 05/15/25 Unknown History release polyvinyl alcohol 1.4 % eye drops 1 drp EACH EYE Q6H P RN dry eyes 05/15/25 Unknown History (Artificial Tears (polyvinyl alcohol)) prednisolone acetate 1 % eye 1 drp LEFT EYE Q6H inflam mation 05/15/25 Unknown History drops,suspension (Pred Forte) psyllium 1 packet PO DAILY bowels Unknown History sodium chloride 1,000 mg soluble 1,000 mg PO BID suppl ement 05/15/25 Unknown History tablet sodium chloride 5 % eye drops 1 drp LEFT EYE 4X/DAY dr y eyes 05/15/25 Unknown History (Obed 128) tamsulosin 0.4 mg capsule 0.4 mg PO DAILY bladder 04/18 Unknown History trazodone 50 mg tablet 50 mg PO QHS sleep 05/15/25 Unknown History triamcinolone acetonide 0.1 % applic topical BID PRN P RN itch 05/15/25 Unknown History topical cream vitamin B complex (B-Complex 1 tab PO DAILY supplement 05/15/25 Unknown History tablet) Allergy/AdvReac Type Severity Reaction Status Date / Time oxycodone AdvReac mental Verified 05/15/25 15:46 status change tramadol AdvReac Mental Verified 05/15/25 15:46 Status Change Surgical History (Updated 05/15/25 @ 18:[address] Kimo Partida MD) History of total bilateral knee replacement History of glaucoma History of esophagogastroduodenoscopy (EGD) History of colonoscopy Social History (Updated 05/15/25 @ 18:[address] Kimo Partida MD) household members: spouse and other details: son Gaurav lives with them. Smoking Status: Never smoker alcohol intake: never substance use type: does not use Medical Records Data Medical Nutrition Assessment Dietitian: Malnutrition Criteria Met Start: 05/16/25 16:31 Freq: Status: Active Protocol: Document 05/21/25 14:09 SLA (Rec: 05/21/25 14:09 SLA [id number]) Nutrition Malnutrition Evidence of Yes Malnutrition Exists Malnutrition (severe Acute Illness/Injury ): Evidenced By Suboptimal Energy Intake (Severe),Weight Loss (Severe), Physical Changes (Moderate) Intake Problem Decreased Nutrient Needs (specify) Etiology fluid r/t hyponatremia Signs/Symptoms as evidenced by need for fluid restriction. 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 - also w/ muscle wasting/fat loss throughout body Status Active Problem Recommendation Dietitian Continue regular diet w/ fluid restriction as ordered Recommendations/ by MD Changes Continue magic cup w/ meals tid and add 4 oz EPHP w/ all meals for increased nutrition if consumed Continue to follow and monitor for changes in res nutritional status and make additional rec as indicated Lab / Micro Data 05/23/25 05:34 05/23/25 05:34 Labs: Laboratory Results - last 24 hr 05/23/25 05:34: WBC 11.4 H, RBC 3.37 L, Hgb 10.8 L, Hct 32.3 L, MCV 95.8 H, MCH 32.0, MCHC 33.4, RDW Std Deviation 47.2 H, RDW Coeff of Stiven 13.2, Plt Count 389, MPV 9.2, Immature Gran % (Auto) 0.400, Neut % (Auto) 70.9 H, Lymph % (Auto) 16.2 L, [place] % (Auto) 11.6 H, Eos % (Auto) 0.6, Baso % (Auto) 0.3, Absolute Neuts (auto) 8.1 H, Absolute Lymphs (auto) 1.85, Nucleated RBC % 0, Sodium 135, Potassium 4.0, Chloride 103, Carbon Dioxide 24.6, Anion Gap 8, BUN 25 H, C reatinine 0.58 L, Estim Creat Clear Calc 64.38, Est GFR (MDRD) Non-Af 95, B UN/Creatinine Ratio 43.8 H, Glucose 104 H, Calcium 8.8
--- NOTE | 2025-05-23 11:26 | PCM.CONS.GEN ---
Assessment & Plan Assessment/Plan (1) Nail dystrophy: (2) Other hereditary and idiopathic neuropathies: (3) Xerosis cutis: PLAN: Plan Evaluation performed. Reviewed foot and toenail care with patient, along with possible causes of toenail changes. Debrided toenails 1,2,3,4,5 bilateral using a nail nipper removing bulk. This was done without incident. Ordered topical moisturizing ointment to apply to skin on feet daily for dry skin. He is going to continue with bilateral AFOs and shoes daily when on feet. He can follow up as outpatient for further podiatric care, please call sooner if needed. Thank you for consultation. HPI Consult Data Date of Consult: 05/23/25 HPI Narrative Reason for Consultation: Foot care, long, thick toenails, dry skin HPI Narrative: HEATHER FRIAS, is a 84 M was seen as a new patient for long, thickened, yellow toenails 1,2,3,4,5 bilateral, he has neuropathy, [facility], but has not been seen there since October per patient. Podiatry was consulted by Dr. Partida. Patient is in TCU, sitting in chair, with his son visiting. Patient wears bilateral AFOs when ambulating, he has diffuse weakness in bilateral lower extremities. He also has chronic diffuse dry skin bilateral foot as well. [facility] Medical History (Updated 05/23/25 @ 11:[address] Prince Duarte, GRANT) GERD (gastroesophageal reflux disease) Irritable bowel syndrome Hiatal hernia Glaucoma Anemia Cervical spinal stenosis Parkinsonism NPH (normal pressure hydrocephalus) Hyponatremia ICH (intracerebral hemorrhage) Ischemic stroke Debility Home Medications ?Medication ?Instructions ?Recorded ?Last Taken ?Type acetaminophen 325 mg tablet 325 mg PO Q6H PRN pain (scale 05/15/25 Unknown History score 1-10) aspirin 81 mg tablet 81 mg PO DAILY blood thinner 05/15/25 Unknown History brimonidine 0.2 %-timolol 0.5 % 1 drp RIGHT EYE Q8 pressure in eye 05/15/25 Unknown History eye drops (Combigan) calcium carbonate (Tums) 200 mg PO DAILY PRN dyspepsia 05/15/25 Unknown History cholecalciferol (vitamin D3) 25 25 mcg PO DAILY supplement 05/15/25 Unknown History mcg (1,000 unit) capsule cyanocobalamin (vitamin B-12) 50 50 mcg PO DAILY supplement 05/15/25 Unknown History mcg tablet (Vitamin B-12) diphenhydramine-zinc acetate 1 1 applic topical Q8H rash 05/15/25 Unknown History %-0.1 % topical cream (Anti-Itch (diphenhydramine) with Zinc) gabapentin 100 mg capsule 100 mg PO BID pain 05/15/25 Unknown History heparin (porcine) 5,000 unit/mL 5,000 unit subcut Q8H blood thinner 05/15/25 Unknown History injection solution melatonin 3 mg capsule 3 mg PO QHS PRN sleep 05/15/25 Unknown History multivitamin 1 tab PO DAILY supplement 05/15/25 Unknown History nitroglycerin 0.4 mg sublingual 0.4 mg sublingual Q5M chest pain 05/15/25 Unknown History tablet pantoprazole 40 mg tablet,delayed 40 mg PO BID reflux 05/15/25 Unknown History release polyvinyl alcohol 1.4 % eye drops 1 drp EACH EYE Q6H PRN dry eyes 05/15/25 Unknown History (Artificial Tears (polyvinyl alcohol)) prednisolone acetate 1 % eye 1 drp LEFT EYE Q6H inflammation 05/15/25 Unknown History drops,suspension (Pred Forte) psyllium 1 packet PO DAILY bowels 05/15/25 Unknown History sodium chloride 1,000 mg soluble 1,000 mg PO BID supplement 05/15/25 Unknown History tablet sodium chloride 5 % eye drops 1 drp LEFT EYE 4X/DAY dry eyes 05/15/25 Unknown History (Obed 128) tamsulosin 0.4 mg capsule 0.4 mg PO DAILY bladder 05/15/25 Unknown History trazodone 50 mg tablet 50 mg PO QHS sleep 05/15/25 Unknown History triamcinolone acetonide 0.1 % applic topical BID PRN PRN itch 05/15/25 Unknown History topical cream vitamin B complex (B-Complex 1 tab PO DAILY supplement 05/15/25 Unknown History tablet) Allergy/AdvReac Type Severity Reaction Status Date / Time oxycodone AdvReac mental Verified 05/15/25 15:46 status change tramadol AdvReac Mental Verified 05/15/25 15:46 Status Change Surgical History (Updated 05/15/25 @ 18:[address] Kimo Partida MD) History of total bilateral knee replacement History of glaucoma History of esophagogastroduodenoscopy (EGD) History of colonoscopy Social History (Updated 05/15/25 @ 18:[address] Kimo Partida MD) household members: spouse and other details: son Gaurav lives with them. Smoking Status: Never smoker alcohol intake: never substance use type: does not use Physical Exam Const alert and no apparent distress Constitutional Narrative: Toenails 1,2,3,4,5 bilateral are elongated, thickened, dystrophic, yellow, incurvated with subungual debris. There are no open lesions, no cellulitis, no maloder, no fluctuance, no crepitus bilateral foot or ankle. Skin is thin and atrophic bilateral foot. Diffuse dry skin to feet bilateral. CFT < 2 seconds to all toes bilateral, no evidence of acute ischemia bilateral foot, pedal pulses intact bilateral. No evidence of DVT bilateral leg. Motor function significantly diminished to foot and ankle bilateral, there is some sensation intact to plantar foot with light touch bilateral. No m/s POP or pain on ROM to foot or ankle, no dislocations bilateral foot or ankle. Medical Records Data Medical Nutrition Assessment Dietitian: Malnutrition Criteria Met Start: 05/16/25 16:31 Freq: Status: Active Protocol: Document 05/21/25 14:09 SLA (Rec: 05/21/25 14:09 SLA [id number]) Nutrition Malnutrition Evidence of Yes Malnutrition Exists Malnutrition (severe Acute Illness/Injury ): Evidenced By Suboptimal Energy Intake (Severe),Weight Loss (Severe), Physical Changes (Moderate) Intake Problem Decreased Nutrient Needs (specify) Etiology fluid r/t hyponatremia Signs/Symptoms as evidenced by need for fluid restriction. 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/ muscle wasting/fat loss throughout body Status Active Problem Recommendation Dietitian Continue regular diet w/ fluid restriction as ordered Recommendations/ by MD Changes Continue magic cup w/ meals tid and add 4 oz EPHP w/ all meals for increased nutrition if consumed Continue to follow and monitor for changes in res nutritional status and make additional rec as indicated Lab / Micro Data 05/23/25 05:34 05/23/25 05:34 Labs: Laboratory Results - last 24 hr 05/23/25 05:34: WBC 11.4 H, RBC 3.37 L, Hgb 10.8 L, Hct 32.3 L, MCV 95.8 H, MCH 32.0, MCHC 33.4, RDW Std Deviation 47.2 H, RDW Coeff of Stiven 13.2, Plt Count 389, MPV 9.2, Immature Gran % (Auto) 0.400, Neut % (Auto) 70.9 H, Lymph % (Auto) 16.2 L, [place] % (Auto) 11.6 H, Eos % (Auto) 0.6, Baso % (Auto) 0.3, Absolute Neuts (auto) 8.1 H, Absolute Lymphs (auto) 1.85, Nucleated RBC % 0, Sodium 135, Potassium 4.0, Chloride 103, Carbon Dioxide 24.6, Anion Gap 8, BUN 25 H, Creatinine 0.58 L, Estim Creat Clear Calc 64.38, Est GFR (MDRD) Non-Af 95, BUN/Creatinine Ratio 43.8 H, Glucose 104 H, Calcium 8.8
--- NOTE | 2025-05-23 11:41 | NURSING ---
notified dr cadena pt WBC count trending up and is at 11.4 today
[2025-05-23] MEDS: Mineral Oil/Petrolatum Cr 1.75oz Bottle 1 APPLIC TOPICAL (12:29)
--- NOTE | 2025-05-23 13:30 | RAD_ITS ---
PROCEDURE: CHEST PA AND LATERAL 05/23/2025 REASON FOR EXAM: ELEVATED WBC. TECHNIQUE: Procedure Code: RADCXR Modality: DX Procedure: CHEST PA AND LATERAL COMPARISON: None. FINDINGS: Hardware: None. Heart: No cardiomegaly. Mediastinum: Tortuosity atherosclerotic calcifications of the aorta. Lungs: Atelectasis in the lung bases. Pneumonia can not be excluded. No pleural effusion or pneumothorax. Bones: No acute bony abnormalities. RAD/Chest PA and Lateral IMPRESSION: Atelectasis in the lung bases. Pneumonia can not be excluded. Reading Location: [id number]
--- NOTE | 2025-05-23 14:55 | CHAPLAIN ---
Type of Pastoral Visit ___ Initial Visit _x__ Follow-up Visit ___ On-call Visit ___ General Patient Visit ___ Spiritual Assessment ___ Family Conference ___ Bereavement ___ Rapid Response ___ Code Blue ___ Other (describe below) Pastoral Care Referral From _x__ Patient ___ Family ___ Nurse ___ Physician ___ Cardiology Fellow ___ Oyster Shucker ___ Other (describe below) Sacrament/Intervention _x__ Active listening ___ Anointing ___ Yarsanism ___ Bereavement ___ Communion _x__ Jazzy exploration ___ _x__ Life review _x__ Prayer ___ Reconciliation ___ Sacrament of Sick ___ Supportive presence ___ Wedding _x__ Other (describe below) Pastoral Comments patient is napping but easily awakened by entering the room; pt wants to have visit and invites this rpg programmer analyst to stay; pt immediately gives words of gratitude for serving in this most important job of all'; pt affirms his jazzy in Reggie Hernandez and shares concerns that others do not take that serious enough; pt is asked about his coping, his progress, and his next steps; pt goes through the process of healing of eyesight and of his bodily conditions; son of patient comes into room and joins in the conversation; pt asks for scriptures to be read and that was done by this rpg programmer analyst; prayer given before visit ended; DR entered room to exam the patient's feet now
[2025-05-23 18:13] LABS: Mucous, Urine 0 SEEN /hpf (<or=2+)
[2025-05-23 18:29] LABS: Color, Urine Yellow (Yellow); Glucose, Dipstick Normal (Normal); Ketone-Dipstick Negative (Negative); Leukocyte Esterase-Dipstick Negative /ul (Negative); Nitrite-Dipstick Negative (Negative); Occult Blood-Urine Negative /ul (Negative); Protein-Dipstick 30 mg/dl (Negative); Specific Gravity, Urine 1.025 (1.002-1.030); Urine Bilirubin Dipstick Negative (Negative)
--- NOTE | 2025-05-23 19:48 | NURSING ---
UA results received, Dr. Partida updated via written communication.
[2025-05-23 21:15] LABS: Calcium Oxalate Crystals Ur 1+ /hpf (<or=2+); Red Blood Cells-Urine 0-5 SEEN /hpf (0-5)
[2025-05-23 21:16] LABS: Squamous Epithelial Cells - UA 5-10 SEEN /hpf (0-5)
[2025-05-24 06:53] LABS: Hematocrit 31.4 % (40-54); Hemoglobin 10.8 g/dL (13.0-16.5); Immature Granulocytes Count 0.040 X10^3/uL (0.0-0.0); Mean Corp Hgb Conc 34.4 g/dL (32-36); Mean Corpuscular Volume 95.2 fL (80-94); Mean Platelet Vol. 9.0 fl (6.2-12.0); NRBC Flagged by Analyzer 0 % (0-5); Platelet Count 393 K/mm3 (150-450); RBC Distribution Width CV 13.2 % (11.6-14.6); RBC Distribution Width SD 46.5 fl (35.1-43.9); Red Blood Count 3.30 M/mm3 (4.6-6.2); White Blood Count 10.8 K/mm3 (4.4-11.0)
--- NOTE | 2025-05-24 06:59 | NURSING ---
Dr. Partida notified of UA results, no new orders pending culture.
[2025-05-24 09:43] VITALS: BP 116/64; PULSE 99; RESP 18; TEMP 36.6; O2SAT 93
[2025-05-24] MEDS: prednisoLONE eye drops (5 mL) 1 DROP OPTH.BTL 1 DRP LEFT EYE ×4 (09:48→21:35)
[2025-05-24] MEDS: BRIMONIDINE 0.2% 5ML BOTTLE 1 DRP RIGHT EYE ×3 (09:48→21:37)
[2025-05-24] MEDS: Aspirin E.C. 81 MG Tablet PO (09:49)
[2025-05-24] MEDS: Cholecalciferol (VIT D3) 25 MCG TABLET (1,000 UNITS) PO (09:49)
[2025-05-24] MEDS: Vitamin B Comp W-C Capsule 1 CAP PO (09:50)
[2025-05-24] MEDS: Psyllium 1 PACKET PO (09:52)
[2025-05-24] MEDS: Mineral Oil/Petrolatum Cr 1.75oz Bottle 1 APPLIC TOPICAL (09:52)
[2025-05-24] MEDS: Sodium Chloride 15ML DROPS 1 DRP LEFT EYE ×4 (09:54→21:40)
[2025-05-24] MEDS: Timolol 0.5% 5ML OPTH.BTL 1 DRP RIGHT EYE ×3 (09:55→21:37)
[2025-05-25] MEDS: Sodium Chloride 15ML DROPS 1 DRP LEFT EYE ×4 (08:23→20:58)
[2025-05-25] MEDS: Timolol 0.5% 5ML OPTH.BTL 1 DRP RIGHT EYE ×3 (08:25→20:56)
[2025-05-25] MEDS: BRIMONIDINE 0.2% 5ML BOTTLE 1 DRP RIGHT EYE ×3 (08:26→20:56)
[2025-05-25] MEDS: prednisoLONE eye drops (5 mL) 1 DROP OPTH.BTL 1 DRP LEFT EYE ×4 (08:27→20:53)
[2025-05-25] MEDS: Aspirin E.C. 81 MG Tablet PO (08:30)
[2025-05-25] MEDS: Vitamin B Comp W-C Capsule 1 CAP PO (08:31)
[2025-05-25] MEDS: Psyllium 1 PACKET PO (08:33)
[2025-05-25] MEDS: Cholecalciferol (VIT D3) 25 MCG TABLET (1,000 UNITS) PO (08:34)
[2025-05-25] MEDS: Mineral Oil/Petrolatum Cr 1.75oz Bottle 1 APPLIC TOPICAL (08:36)
[2025-05-25 16:00] VITALS: BP 135/72; PULSE 93; RESP 16; TEMP 36.6; O2SAT 94
[2025-05-25 20:00] VITALS: PULSE 98; O2SAT 93
[2025-05-26 02:27] VITALS: PULSE 90; O2SAT 93
[2025-05-26 08:56] VITALS: BP 124/75; PULSE 104; RESP 17; TEMP 36.4; O2SAT 95
[2025-05-26] MEDS: prednisoLONE eye drops (5 mL) 1 DROP OPTH.BTL 1 DRP LEFT EYE ×4 (09:01→20:28)
[2025-05-26] MEDS: Cholecalciferol (VIT D3) 25 MCG TABLET (1,000 UNITS) PO (09:03)
[2025-05-26] MEDS: Psyllium 1 PACKET PO (09:03)
[2025-05-26] MEDS: Aspirin E.C. 81 MG Tablet PO (09:03)
[2025-05-26] MEDS: Vitamin B Comp W-C Capsule 1 CAP PO (09:03)
[2025-05-26] MEDS: Sodium Chloride 15ML DROPS 1 DRP LEFT EYE ×4 (09:04→20:33)
[2025-05-26] MEDS: Mineral Oil/Petrolatum Cr 1.75oz Bottle 1 APPLIC TOPICAL (09:04)
[2025-05-26] MEDS: Timolol 0.5% 5ML OPTH.BTL 1 DRP RIGHT EYE ×3 (09:07→20:28)
[2025-05-26] MEDS: BRIMONIDINE 0.2% 5ML BOTTLE 1 DRP RIGHT EYE ×3 (09:07→20:29)
--- NOTE | 2025-05-27 10:08 | MDS.RN ---
Information for the MDS was obtained from review of the clinical record, interview of resident, staff, and direct observation of resident?s care.
[2025-05-27 10:28] VITALS: BP 134/74; PULSE 101; RESP 18; TEMP 36.4; O2SAT 95
[2025-05-27] MEDS: Cholecalciferol (VIT D3) 25 MCG TABLET (1,000 UNITS) PO (10:35)
[2025-05-27] MEDS: Aspirin E.C. 81 MG Tablet PO (10:35)
[2025-05-27] MEDS: Vitamin B Comp W-C Capsule 1 CAP PO (10:35)
[2025-05-27] MEDS: BRIMONIDINE 0.2% 5ML BOTTLE 1 DRP RIGHT EYE ×3 (10:36→20:36)
[2025-05-27] MEDS: Timolol 0.5% 5ML OPTH.BTL 1 DRP RIGHT EYE ×3 (10:36→20:37)
[2025-05-27] MEDS: prednisoLONE eye drops (5 mL) 1 DROP OPTH.BTL 1 DRP LEFT EYE ×4 (10:37→20:35)
[2025-05-27] MEDS: Sodium Chloride 15ML DROPS 1 DRP LEFT EYE ×4 (10:37→20:40)
[2025-05-27] MEDS: Mineral Oil/Petrolatum Cr 1.75oz Bottle 1 APPLIC TOPICAL (10:38)
[2025-05-27] MEDS: Psyllium 1 PACKET PO (10:41)
[2025-05-27 15:14] VITALS: BMI 19.8
[2025-05-27 20:00] VITALS: PULSE 98; O2SAT 93
[2025-05-28 06:46] VITALS: PULSE 85; O2SAT 97
[2025-05-28 09:03] VITALS: BP 131/76; PULSE 102; RESP 18; TEMP 37; O2SAT 94
[2025-05-28] MEDS: prednisoLONE eye drops (5 mL) 1 DROP OPTH.BTL 1 DRP LEFT EYE ×4 (09:04→20:22)
[2025-05-28] MEDS: BRIMONIDINE 0.2% 5ML BOTTLE 1 DRP RIGHT EYE ×3 (09:06→20:24)
[2025-05-28] MEDS: Timolol 0.5% 5ML OPTH.BTL 1 DRP RIGHT EYE ×3 (09:06→20:25)
[2025-05-28] MEDS: Vitamin B Comp W-C Capsule 1 CAP PO (09:08)
[2025-05-28] MEDS: Cholecalciferol (VIT D3) 25 MCG TABLET (1,000 UNITS) PO (09:08)
[2025-05-28] MEDS: Mineral Oil/Petrolatum Cr 1.75oz Bottle 1 APPLIC TOPICAL (09:09)
[2025-05-28] MEDS: Aspirin E.C. 81 MG Tablet PO (09:09)
[2025-05-28] MEDS: Psyllium 1 PACKET PO (09:09)
[2025-05-28] MEDS: Sodium Chloride 15ML DROPS 1 DRP LEFT EYE ×4 (09:15→20:30)
--- NOTE | 2025-05-28 12:11 | CASEMGMT ---
Social Work- MARGIE called [facility] and left a message with José Antonio to collaborate for discharge planning needs. MARGIE remains available to follow. TIM Lau
[2025-05-29] MEDS: prednisoLONE eye drops (5 mL) 1 DROP OPTH.BTL 1 DRP LEFT EYE ×4 (08:56→20:24)
[2025-05-29] MEDS: Sodium Chloride 15ML DROPS 1 DRP LEFT EYE ×4 (08:57→20:31)
[2025-05-29] MEDS: Vitamin B Comp W-C Capsule 1 CAP PO (08:57)
[2025-05-29] MEDS: Timolol 0.5% 5ML OPTH.BTL 1 DRP RIGHT EYE ×3 (08:57→20:26)
[2025-05-29] MEDS: Aspirin E.C. 81 MG Tablet PO (08:57)
[2025-05-29] MEDS: BRIMONIDINE 0.2% 5ML BOTTLE 1 DRP RIGHT EYE ×3 (08:57→20:25)
[2025-05-29] MEDS: Cholecalciferol (VIT D3) 25 MCG TABLET (1,000 UNITS) PO (08:58)
[2025-05-29] MEDS: Psyllium 1 PACKET PO (08:58)
[2025-05-29] MEDS: Mineral Oil/Petrolatum Cr 1.75oz Bottle 1 APPLIC TOPICAL (08:59)
[2025-05-29 09:07] VITALS: BP 130/56; PULSE 92; RESP 16; TEMP 36.8; O2SAT 97
--- NOTE | 2025-05-29 14:13 | CASEMGMT ---
Social Work- MARGIE received a return call from Jacky at [facility]. Jacky reports that she had not received notification that pt was here. SW provided admit information. Jacky reports that pt is connected for medical, but is not service connected for SNF. Pt needs to see PCP at [facility], as last appointment was 01/2024. Pt has seen podiatry and optometry. Pt is not active with any other services through the [facility]. MARGIE updated TCU MARGIE. TIM Lau
[2025-05-29 20:30] VITALS: PULSE 100; RESP 16; O2SAT 96
[2025-05-30 01:00] VITALS: PULSE 69; RESP 18; O2SAT 96
[2025-05-30 08:09] LABS: Hematocrit 37.8 % (40-54); Hemoglobin 12.5 g/dL (13.0-16.5); Immature Granulocytes Count 0.030 X10^3/uL (0.0-0.0); Mean Corp Hgb Conc 33.1 g/dL (32-36); Mean Corpuscular Volume 97.2 fL (80-94); Mean Platelet Vol. 8.9 fl (6.2-12.0); NRBC Flagged by Analyzer 0 % (0-5); Platelet Count 482 K/mm3 (150-450); RBC Distribution Width CV 13.1 % (11.6-14.6); RBC Distribution Width SD 46.7 fl (35.1-43.9); Red Blood Count 3.89 M/mm3 (4.6-6.2); White Blood Count 9.1 K/mm3 (4.4-11.0)
[2025-05-30 08:54] LABS: Anion Gap 7 (5-15); BUN 33 mg/dL (4-19); BUN/Creat Ratio 56.4 RATIO (10-20); Calcium,Total 9.2 mg/dL (7.6-11.0); Carbon Dioxide 28.2 mmol/L (21.0-32.0); Chloride 105 mmol/L (98-108); Estimated Creatinine Clearance 62.17 ml/min (50-250); Glucose 99 mg/dL (70-99); Potassium 4.2 mmol/L (3.3-5.1)
[2025-05-30 09:08] VITALS: BP 125/62; PULSE 100; RESP 16; TEMP 36.2; O2SAT 98
[2025-05-30] MEDS: prednisoLONE eye drops (5 mL) 1 DROP OPTH.BTL 1 DRP LEFT EYE ×4 (09:11→20:33)
[2025-05-30] MEDS: Timolol 0.5% 5ML OPTH.BTL 1 DRP RIGHT EYE ×3 (09:12→20:33)
[2025-05-30] MEDS: BRIMONIDINE 0.2% 5ML BOTTLE 1 DRP RIGHT EYE ×3 (09:12→20:32)
[2025-05-30] MEDS: Vitamin B Comp W-C Capsule 1 CAP PO (09:15)
[2025-05-30] MEDS: Aspirin E.C. 81 MG Tablet PO (09:15)
[2025-05-30] MEDS: Psyllium 1 PACKET PO (09:15)
[2025-05-30] MEDS: Cholecalciferol (VIT D3) 25 MCG TABLET (1,000 UNITS) PO (09:16)
[2025-05-30] MEDS: Mineral Oil/Petrolatum Cr 1.75oz Bottle 1 APPLIC TOPICAL (09:17)
[2025-05-30] MEDS: Sodium Chloride 15ML DROPS 1 DRP LEFT EYE ×4 (09:18→20:32)
--- NOTE | 2025-05-30 16:51 | NS ---
Received call today from TCU nurse requesting need to have ensure plus HP with medpass and also reporting that resident did not receive ensure plus on meal tray at lunch. Spoke to Nette in diet office who confirms that 4oz vanilla ensure plus HP was on meal tray. Will adjust diet order to provide magic cup with all meals and ensure plus HP will be added 120mL 4 times per day with medpass per nurse's request. Resident is on 1200mL/day FR so, nursing will manage all 1200mL fluids for the day; adjusted diet order and confirmed with diet office order updated to no fluids/liquids on meal trays. Josie Terrazas, MS, RD, LD
[2025-05-30] MEDS: Ensure Plus High Protein 120 ML LIQUID PO ×2 (18:27→20:34)
[2025-05-31 08:24] VITALS: BP 145/67; PULSE 94; RESP 18; TEMP 36.5; O2SAT 95
[2025-05-31] MEDS: Ensure Plus High Protein 120 ML LIQUID PO ×4 (08:29→20:14)
[2025-05-31] MEDS: prednisoLONE eye drops (5 mL) 1 DROP OPTH.BTL 1 DRP LEFT EYE ×4 (08:29→20:51)
[2025-05-31] MEDS: Timolol 0.5% 5ML OPTH.BTL 1 DRP RIGHT EYE ×3 (08:30→20:13)
[2025-05-31] MEDS: BRIMONIDINE 0.2% 5ML BOTTLE 1 DRP RIGHT EYE ×3 (08:30→20:12)
[2025-05-31] MEDS: Sodium Chloride 15ML DROPS 1 DRP LEFT EYE ×4 (08:30→20:12)
[2025-05-31] MEDS: Aspirin E.C. 81 MG Tablet PO (08:33)
[2025-05-31] MEDS: Vitamin B Comp W-C Capsule 1 CAP PO (08:33)
[2025-05-31] MEDS: Psyllium 1 PACKET PO (08:34)
[2025-05-31] MEDS: Mineral Oil/Petrolatum Cr 1.75oz Bottle 1 APPLIC TOPICAL (08:34)
[2025-05-31] MEDS: Cholecalciferol (VIT D3) 25 MCG TABLET (1,000 UNITS) PO (08:35)
[2025-05-31 20:00] VITALS: PULSE 51; O2SAT 96
[2025-05-31] MEDS: Doxepin Hydrochloride 10 MG Capsule PO (23:13)
[2025-06-01 05:25] VITALS: PULSE 100; O2SAT 97
[2025-06-01 08:09] VITALS: BP 124/77; PULSE 90; RESP 17; TEMP 36.4; O2SAT 95
[2025-06-01] MEDS: Aspirin E.C. 81 MG Tablet PO (08:12)
[2025-06-01] MEDS: Vitamin B Comp W-C Capsule 1 CAP PO (08:12)
[2025-06-01] MEDS: BRIMONIDINE 0.2% 5ML BOTTLE 1 DRP RIGHT EYE ×3 (08:13→21:02)
[2025-06-01] MEDS: Cholecalciferol (VIT D3) 25 MCG TABLET (1,000 UNITS) PO (08:13)
[2025-06-01] MEDS: Sodium Chloride 15ML DROPS 1 DRP LEFT EYE ×4 (08:14→21:02)
[2025-06-01] MEDS: prednisoLONE eye drops (5 mL) 1 DROP OPTH.BTL 1 DRP LEFT EYE ×4 (08:14→21:02)
[2025-06-01] MEDS: Ensure Plus High Protein 120 ML LIQUID PO ×4 (08:15→21:03)
[2025-06-01] MEDS: Timolol 0.5% 5ML OPTH.BTL 1 DRP RIGHT EYE ×3 (08:15→21:03)
[2025-06-01] MEDS: Mineral Oil/Petrolatum Cr 1.75oz Bottle 1 APPLIC TOPICAL (08:15)
[2025-06-01] MEDS: Psyllium 1 PACKET PO (08:17)
[2025-06-02] MEDS: Doxepin Hydrochloride 10 MG Capsule PO (00:19)
[2025-06-02 00:30] VITALS: PULSE 111; O2SAT 94
[2025-06-02 10:55] VITALS: BP 135/88; PULSE 98; RESP 18; TEMP 36.5; O2SAT 94
[2025-06-02] MEDS: Vitamin B Comp W-C Capsule 1 CAP PO (11:00)
[2025-06-02] MEDS: Aspirin E.C. 81 MG Tablet PO (11:00)
[2025-06-02] MEDS: BRIMONIDINE 0.2% 5ML BOTTLE 1 DRP RIGHT EYE ×3 (11:01→20:30)
[2025-06-02] MEDS: Sodium Chloride 15ML DROPS 1 DRP LEFT EYE ×4 (11:01→20:40)
[2025-06-02] MEDS: prednisoLONE eye drops (5 mL) 1 DROP OPTH.BTL 1 DRP LEFT EYE ×4 (11:02→20:28)
[2025-06-02] MEDS: Timolol 0.5% 5ML OPTH.BTL 1 DRP RIGHT EYE ×3 (11:02→20:31)
[2025-06-02] MEDS: Psyllium 1 PACKET PO (11:03)
[2025-06-02] MEDS: Mineral Oil/Petrolatum Cr 1.75oz Bottle 1 APPLIC TOPICAL (11:03)
[2025-06-02] MEDS: Cholecalciferol (VIT D3) 25 MCG TABLET (1,000 UNITS) PO (11:03)
[2025-06-02] MEDS: Ensure Plus High Protein 120 ML LIQUID PO ×4 (11:06→20:35)
[2025-06-03] MEDS: prednisoLONE eye drops (5 mL) 1 DROP OPTH.BTL 1 DRP LEFT EYE ×4 (08:41→20:13)
[2025-06-03] MEDS: Psyllium 1 PACKET PO (08:43)
[2025-06-03] MEDS: Aspirin E.C. 81 MG Tablet PO (08:45)
[2025-06-03] MEDS: Vitamin B Comp W-C Capsule 1 CAP PO (08:45)
[2025-06-03] MEDS: Cholecalciferol (VIT D3) 25 MCG TABLET (1,000 UNITS) PO (08:46)
[2025-06-03] MEDS: Timolol 0.5% 5ML OPTH.BTL 1 DRP RIGHT EYE ×3 (08:47→20:14)
[2025-06-03] MEDS: Mineral Oil/Petrolatum Cr 1.75oz Bottle 1 APPLIC TOPICAL (08:47)
[2025-06-03] MEDS: BRIMONIDINE 0.2% 5ML BOTTLE 1 DRP RIGHT EYE ×3 (08:48→20:14)
[2025-06-03] MEDS: Ensure Plus High Protein 120 ML LIQUID PO ×4 (08:50→20:16)
[2025-06-03] MEDS: Sodium Chloride 15ML DROPS 1 DRP LEFT EYE ×4 (08:50→20:18)
[2025-06-03 09:02] VITALS: BP 111/69; PULSE 94; RESP 16; TEMP 36.2; O2SAT 96
[2025-06-03 10:00] VITALS: PULSE 100; RESP 16; O2SAT 96
[2025-06-03 14:25] VITALS: BMI 19.8
[2025-06-04 03:20] VITALS: PULSE 95; RESP 18; O2SAT 95
[2025-06-04] MEDS: Vitamin B Comp W-C Capsule 1 CAP PO (08:46)
[2025-06-04] MEDS: prednisoLONE eye drops (5 mL) 1 DROP OPTH.BTL 1 DRP LEFT EYE ×4 (08:46→20:32)
[2025-06-04] MEDS: Sodium Chloride 15ML DROPS 1 DRP LEFT EYE ×4 (08:46→20:41)
[2025-06-04] MEDS: Psyllium 1 PACKET PO (08:46)
[2025-06-04] MEDS: Cholecalciferol (VIT D3) 25 MCG TABLET (1,000 UNITS) PO (08:46)
[2025-06-04] MEDS: Aspirin E.C. 81 MG Tablet PO (08:46)
[2025-06-04] MEDS: Mineral Oil/Petrolatum Cr 1.75oz Bottle 1 APPLIC TOPICAL (08:47)
[2025-06-04] MEDS: BRIMONIDINE 0.2% 5ML BOTTLE 1 DRP RIGHT EYE ×4 (08:47→20:35)
[2025-06-04] MEDS: Timolol 0.5% 5ML OPTH.BTL 1 DRP RIGHT EYE ×3 (08:47→20:36)
[2025-06-04] MEDS: Ensure Plus High Protein 120 ML LIQUID PO ×4 (08:54→20:33)
[2025-06-04 08:58] VITALS: BP 125/70; PULSE 102; RESP 16; TEMP 36.4; O2SAT 96
[2025-06-05 07:00] LABS: Anion Gap 10 (5-15); BUN 36 mg/dL (4-19); BUN/Creat Ratio 54.2 RATIO (10-20); Calcium,Total 9.2 mg/dL (7.6-11.0); Carbon Dioxide 25.6 mmol/L (21.0-32.0); Chloride 105 mmol/L (98-108); Estimated Creatinine Clearance 62.26 ml/min (50-250); Glucose 112 mg/dL (70-99); Potassium 4.2 mmol/L (3.3-5.1)
[2025-06-05 08:33] VITALS: BP 141/79; PULSE 92; RESP 18; TEMP 36.6; O2SAT 95
[2025-06-05] MEDS: Vitamin B Comp W-C Capsule 1 CAP PO (08:36)
[2025-06-05] MEDS: Aspirin E.C. 81 MG Tablet PO (08:36)
[2025-06-05] MEDS: Cholecalciferol (VIT D3) 25 MCG TABLET (1,000 UNITS) PO (08:36)
[2025-06-05] MEDS: Psyllium 1 PACKET PO (08:37)
[2025-06-05] MEDS: prednisoLONE eye drops (5 mL) 1 DROP OPTH.BTL 1 DRP LEFT EYE ×4 (08:38→20:25)
[2025-06-05] MEDS: Mineral Oil/Petrolatum Cr 1.75oz Bottle 1 APPLIC TOPICAL (08:38)
[2025-06-05] MEDS: Timolol 0.5% 5ML OPTH.BTL 1 DRP RIGHT EYE ×3 (08:42→20:26)
[2025-06-05] MEDS: BRIMONIDINE 0.2% 5ML BOTTLE 1 DRP RIGHT EYE ×3 (08:43→20:26)
[2025-06-05] MEDS: Sodium Chloride 15ML DROPS 1 DRP LEFT EYE ×4 (08:45→20:28)
[2025-06-05] MEDS: Ensure Plus High Protein 120 ML LIQUID PO ×3 (12:21→20:28)
--- NOTE | 2025-06-05 15:03 | CASEMGMT ---
Social Work SW completed BIMS () and PHQ-9 () for MDS assessment. Scoring has not changed from last MDS. No new interventions note. SW will continue to monitor. Olivia Colon MSW RAKER BUFFING WHEEL
[2025-06-05 20:00] VITALS: PULSE 69; O2SAT 95
[2025-06-06 06:09] LABS: Hematocrit 34.2 % (40-54); Hemoglobin 11.0 g/dL (13.0-16.5); Immature Granulocytes Count 0.040 X10^3/uL (0.0-0.0); Mean Corp Hgb Conc 32.2 g/dL (32-36); Mean Corpuscular Volume 97.4 fL (80-94); Mean Platelet Vol. 9.6 fl (6.2-12.0); NRBC Flagged by Analyzer 0 % (0-5); Platelet Count 437 K/mm3 (150-450); RBC Distribution Width CV 13.7 % (11.6-14.6); RBC Distribution Width SD 48.5 fl (35.1-43.9); Red Blood Count 3.51 M/mm3 (4.6-6.2); White Blood Count 10.7 K/mm3 (4.4-11.0)
[2025-06-06 06:39] LABS: Anion Gap 8 (5-15); BUN 37 mg/dL (4-19); BUN/Creat Ratio 65.5 RATIO (10-20); Calcium,Total 8.9 mg/dL (7.6-11.0); Carbon Dioxide 26.0 mmol/L (21.0-32.0); Chloride 106 mmol/L (98-108); Estimated Creatinine Clearance 62.26 ml/min (50-250); Glucose 112 mg/dL (70-99); Potassium 4.3 mmol/L (3.3-5.1)
[2025-06-06 06:52] VITALS: PULSE 61; O2SAT 93
--- NOTE | 2025-06-06 07:33 | MDS.RN ---
Information for the MDS was obtained from review of the clinical record, interview of resident, staff, and direct observation of resident?s care.
[2025-06-06] MEDS: prednisoLONE eye drops (5 mL) 1 DROP OPTH.BTL 1 DRP LEFT EYE ×4 (09:13→20:35)
[2025-06-06] MEDS: Aspirin E.C. 81 MG Tablet PO (09:13)
[2025-06-06] MEDS: Cholecalciferol (VIT D3) 25 MCG TABLET (1,000 UNITS) PO (09:13)
[2025-06-06] MEDS: Vitamin B Comp W-C Capsule 1 CAP PO (09:13)
[2025-06-06] MEDS: BRIMONIDINE 0.2% 5ML BOTTLE 1 DRP RIGHT EYE ×3 (09:14→20:35)
[2025-06-06] MEDS: Sodium Chloride 15ML DROPS 1 DRP LEFT EYE ×4 (09:14→20:40)
[2025-06-06] MEDS: Timolol 0.5% 5ML OPTH.BTL 1 DRP RIGHT EYE ×3 (09:14→20:36)
[2025-06-06] MEDS: Mineral Oil/Petrolatum Cr 1.75oz Bottle 1 APPLIC TOPICAL (09:15)
[2025-06-06] MEDS: Psyllium 1 PACKET PO (09:15)
[2025-06-06 09:24] VITALS: BP 142/69; PULSE 96; RESP 16; TEMP 36.4; O2SAT 96
[2025-06-06] MEDS: Ensure Plus High Protein 120 ML LIQUID PO ×4 (09:24→20:40)
--- NOTE | 2025-06-06 16:12 | CASEMGMT ---
Social Work Son, Radha, presented to this worker's office. Son inquired about contracts representative recommendations for 06/02 care, which son agrees too. Son is aware pt needs two people to assist; cannot assist and son has been a great caregiver until this point but unsure about his longevity d/t his own medical issues. Son inquiring about options available and if the family can schedule a meeting with this worker. SW agreed and scheduled to meet with pt, and both son's on 06/10 at 1500. MARGIE will come prepared with resources and options for DC. Olivia Colon MOTOR EQUIPMENT CAPTAIN NURSING HOME MANAGER
[2025-06-07 06:08] VITALS: PULSE 60; O2SAT 95
[2025-06-07 06:50] LABS: Hematocrit 35.5 % (40-54); Hemoglobin 11.5 g/dL (13.0-16.5)
[2025-06-07 08:45] VITALS: BP 135/66; PULSE 55; RESP 18; TEMP 36; O2SAT 97
[2025-06-07] MEDS: prednisoLONE eye drops (5 mL) 1 DROP OPTH.BTL 1 DRP LEFT EYE ×4 (08:49→20:37)
[2025-06-07] MEDS: Ensure Plus High Protein 120 ML LIQUID PO ×4 (08:54→20:35)
[2025-06-07] MEDS: Cholecalciferol (VIT D3) 25 MCG TABLET (1,000 UNITS) PO (08:55)
[2025-06-07] MEDS: Sodium Chloride 15ML DROPS 1 DRP LEFT EYE ×4 (08:55→20:42)
[2025-06-07] MEDS: Aspirin E.C. 81 MG Tablet PO (08:55)
[2025-06-07] MEDS: Timolol 0.5% 5ML OPTH.BTL 1 DRP RIGHT EYE ×3 (08:55→20:38)
[2025-06-07] MEDS: Vitamin B Comp W-C Capsule 1 CAP PO (08:55)
[2025-06-07] MEDS: Psyllium 1 PACKET PO (08:55)
[2025-06-07] MEDS: BRIMONIDINE 0.2% 5ML BOTTLE 1 DRP RIGHT EYE ×3 (08:56→20:38)
[2025-06-07] MEDS: Mineral Oil/Petrolatum Cr 1.75oz Bottle 1 APPLIC TOPICAL (08:59)
[2025-06-07 14:55] VITALS: BP 113/67; PULSE 72; RESP 14; TEMP 36.3
[2025-06-08 01:33] VITALS: PULSE 100; RESP 16; O2SAT 98
[2025-06-08] MEDS: prednisoLONE eye drops (5 mL) 1 DROP OPTH.BTL 1 DRP LEFT EYE ×4 (09:41→20:00)
[2025-06-08] MEDS: Timolol 0.5% 5ML OPTH.BTL 1 DRP RIGHT EYE ×3 (09:43→20:01)
[2025-06-08] MEDS: BRIMONIDINE 0.2% 5ML BOTTLE 1 DRP RIGHT EYE ×3 (09:43→20:00)
[2025-06-08] MEDS: Ensure Plus High Protein 120 ML LIQUID PO ×4 (09:45→20:01)
[2025-06-08] MEDS: Psyllium 1 PACKET PO (09:45)
[2025-06-08] MEDS: Vitamin B Comp W-C Capsule 1 CAP PO (09:45)
[2025-06-08] MEDS: Aspirin E.C. 81 MG Tablet PO (09:45)
[2025-06-08] MEDS: Cholecalciferol (VIT D3) 25 MCG TABLET (1,000 UNITS) PO (09:46)
[2025-06-08] MEDS: Mineral Oil/Petrolatum Cr 1.75oz Bottle 1 APPLIC TOPICAL (09:46)
[2025-06-08] MEDS: Sodium Chloride 15ML DROPS 1 DRP LEFT EYE ×4 (09:47→20:05)
--- NOTE | 2025-06-08 14:20 | NURSING ---
Pt was able to wheel self around unit in WC with use of lower extremities. pt had AFO's shoes. son at side. pt states he is not as energetic as he use to be, his son reported that he use to run and would always have energy. 1:1 emotional support given. pt needs much encouragement & reassurance that he can do it. pt explains that he just don't seem to understand why he feels the way he does. pt more anxious and increased self doubt noted when sons are visiting.
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
[2025-06-09 00:45] VITALS: PULSE 66; RESP 18; O2SAT 92
[2025-06-09] MEDS: BRIMONIDINE 0.2% 5ML BOTTLE 1 DRP RIGHT EYE ×3 (07:51→20:45)
[2025-06-09] MEDS: prednisoLONE eye drops (5 mL) 1 DROP OPTH.BTL 1 DRP LEFT EYE ×4 (07:51→20:45)
[2025-06-09] MEDS: Sodium Chloride 15ML DROPS 1 DRP LEFT EYE ×4 (07:51→20:52)
[2025-06-09] MEDS: Cholecalciferol (VIT D3) 25 MCG TABLET (1,000 UNITS) PO (07:51)
[2025-06-09] MEDS: Psyllium 1 PACKET PO (07:51)
[2025-06-09] MEDS: Timolol 0.5% 5ML OPTH.BTL 1 DRP RIGHT EYE ×3 (07:51→20:46)
[2025-06-09] MEDS: Vitamin B Comp W-C Capsule 1 CAP PO (07:52)
[2025-06-09] MEDS: Aspirin E.C. 81 MG Tablet PO (07:52)
[2025-06-09] MEDS: Ensure Plus High Protein 120 ML LIQUID PO ×4 (07:52→20:51)
[2025-06-09] MEDS: Mineral Oil/Petrolatum Cr 1.75oz Bottle 1 APPLIC TOPICAL (07:53)
[2025-06-09 08:07] VITALS: BP 148/84; PULSE 97; RESP 16; TEMP 36.4; O2SAT 95
--- NOTE | 2025-06-09 19:17 | PN.TCU_ITS ---
Subjective Subjective Patient seen, examined for regulatory visit. Over the weekend, he states he was very depressed, thinking about his 10 year old son who was hit by car. I asked him specifically about depression, he states his mood is down sometimes, but he does not feel treatment of depression is necessary. He would like to be around more people, as people cheer him up. He has no other complaints. Nursing notes Ac is on the call light frequently and does not like to alone. Objective Data Objective Data Vital Signs: Vital Signs Temp Pulse Resp BP Pulse Ox O2 Del Method O2 Flow Rate 97.5 F L 97 16 148/84 H 95 Room Air 0 06/09/25 08:07 06/09/25 08:07 06/09/25 08:07 06/09/25 08:07 06/09/25 08:07 06/09/25 08:07 05/15/25 20:41 FiO2 21 05/15/25 20:41 Oxygen Flow Rate (L/min) 0 Oxygen Delivery Method Room Air Weight: 66.406 kg Body Mass Index (BMI) 19.8 Intake & Output: Intake and Output for Last 24 Hours 06/07/25 06/08/25 06/09/25 23:59 23:59 23:59 Intake Total 1240 / 1240 1320 / 1320 990 / 990 Output Total 450 / 450 250 / 250 Balance 790 / 790 1070 / 1070 990 / 990 Medical Nutrition Assessment Dietitian: Malnutrition Criteria Met Start: 05/16/25 16:31 Freq: Status: Active Protocol: Document 06/02/25 13:43 SLA (Rec: 06/02/25 13:44 SLA 10..25.7) Nutrition Malnutrition Evidence of Yes Malnutrition Exists Malnutrition (severe Acute Illness/Injury ): Evidenced By Suboptimal Energy Intake (Moderate),Weight Loss (Severe ),Physical Changes (Moderate) Intake Problem Decreased Nutrient Needs (specify) Etiology fluid r/t hyponatremia Signs/Symptoms as evidenced by need for fluid restriction. Status Active Problem Clinical Problem Acute Disease or Injury Related Malnutrition Etiology related to acute illness and suboptimal energy intake Signs/Symptoms as evidenced by po intake meeting <=50% of est nutritional needs and 12.8% unplanned wt loss x 2 months service captain - and additional 3.5% wt loss since adm. Also w/ muscle wasting/fat loss throughout body. PO INTAKE APPEARS TO BE IMPROVING Status Active Problem Recommendation Dietitian Continue regular diet w/ fluid restriction as ordered Recommendations/ by MD - dietary will only send magic cup w/ meals and Changes NO LIQUIDS and nsg to give all fluids - rec liberalize fluid restriction as able. Continue magic cup w/ meals tid and 4 oz EPHP 4x/day w/ medpass for increased nutrition if consumed Continue to follow and monitor for changes in res nutritional status and make additional rec as indicated Lab / Micro Data 06/07/25 06:32 06/06/25 05:26 Micro: Microbiology 05/23/25 14:50 Urine, Catheterized Urine Culture - Final Culture exhibits no growth. 05/23/25 15:00 Mucosa - Nasopharyngeal Respiratory Panel (PCR) - Final 05/23/25 15:00 Nasal Secretion SARS-CoV-2 Antigen (Rapid) - Final 05/19/25 08:25 Urine, Catheterized Urine Culture - Final Culture exhibits no growth. Physical Exam Const alert Constitutional Narrative: Sleepy, but arouses easily. General Appearance: cooperative HEENT normocephalic Eyes PERRL and EOMs intact bilaterally Neck supple, no JVD and no carotid bruits Resp normal respiratory effort, normal air movement and clear to auscultation bilaterally Cardio regular rate and regular rhythm GI normal to inspection, nondistended, normoactive bowel sounds, non-tender and non-distended Extremity normal capillary refill General Extremity: Negative for edema Skin no rashes or lesions noted General Skin Exam: no breakdown Psych affect normal Appearance: appropriate Assessment & Plan Assessment/Plan (1) Debility: (2) Ischemic stroke: (3) ICH (intracerebral hemorrhage): (4) Hyponatremia: (5) NPH (normal pressure hydrocephalus): (6) Parkinsonism: (7) Cervical spinal stenosis: (8) Anemia: (9) Glaucoma: (10) Hiatal hernia: (11) Irritable bowel syndrome: (12) GERD (gastroesophageal reflux disease): PLAN: Plan 84 year old male with below past medical history hospitalized for failure to thrive 2/2 stroke, ich, complicated by hyponatremia, possible NPH, admitted to TCU with debility, here for rehabilitation, strengthening, prior to discharge home with and son. * Debility - PT/OT. * Dysphagia. * Pain - Tylenol 1000mg q8 prn. * Bowel - Metamucil 1 packet daily. * Adult immunization - Administer pneumonia vaccine, covid vaccine, flu vaccine as appropriate. * DVT prophylaxis - Lovenox 40mg sc daily. * NPH- follow up with Neurology after discharge. * Stroke - Aspirin 81mg daily. * Glaucoma - Brimonidine 1gtt od q8, Timoptic 1gtt od q8. * GERD - Pantoprazole 40mg daily, TUMS 500mg daily prn. * Dry eyes - Artificial tears 1gtt ou q6, Sodium chloride 1gtt os qid. * Vitamin D deficiency - D3 25mcg daily. * Nutrition - MVI 1 tablet daily, Ensure Plus 120mL 4x/day. * Coronary artery disease - NTG 0.4mg sl q5m prn. * Eye inflammation - Prednisolone 1gtt os qid. * Dry eyes - Artificial tears 1gtt q6 prn, Sodium chloride 1gtt os 4x/day. * Hyponatremia - Sodium chloride 1gm tid, fluid restriction. * BPH - Tamsulosin 0.4mg qhs. * Skin irritation - Kenalog cream topical bid prn, Calmoseptine topical bid, Aquaphor topical daily. * Tinea Corporis - Nystatin powder topical bid. * CAD - NTG 0.4mg sl q5m prn. * Leg cramps - Vitamin B complex 1 tablet daily. The following psychotropic medication is being started or the dose in being increased: Doxepin 10mg qhs. Psychotropic medication therapy is indicated for a diagnosis of: Insomnia. In my professional judgement, medication is necessary because the resident?s symptoms cause significant distress to the resident or a danger to the resident or others. Evaluation for underlying causes including medical illness and pain has been considered. The benefits of the medication are felt to outweigh potential harm. Nonpharmacologic/behavior interventions have been attempted but have not been effective or nonpharmacologic interventions are contraindicated for this patient. Potential benefits and risks of treatment and alternatives have been reviewed with resident/family and the resident/family have accepted psychotropic medication treatment. Please see nursing documentation.
[2025-06-10 04:35] VITALS: PULSE 99; RESP 16; O2SAT 95
[2025-06-10] MEDS: Ensure Plus High Protein 120 ML LIQUID PO ×4 (08:04→20:40)
[2025-06-10] MEDS: Sodium Chloride 15ML DROPS 1 DRP LEFT EYE ×4 (08:05→20:43)
[2025-06-10] MEDS: BRIMONIDINE 0.2% 5ML BOTTLE 1 DRP RIGHT EYE ×3 (08:05→20:39)
[2025-06-10] MEDS: prednisoLONE eye drops (5 mL) 1 DROP OPTH.BTL 1 DRP LEFT EYE ×4 (08:05→20:36)
[2025-06-10] MEDS: Timolol 0.5% 5ML OPTH.BTL 1 DRP RIGHT EYE ×3 (08:06→20:39)
[2025-06-10] MEDS: Vitamin B Comp W-C Capsule 1 CAP PO (08:08)
[2025-06-10] MEDS: Aspirin E.C. 81 MG Tablet PO (08:08)
[2025-06-10] MEDS: Cholecalciferol (VIT D3) 25 MCG TABLET (1,000 UNITS) PO (08:09)
[2025-06-10] MEDS: Psyllium 1 PACKET PO (08:09)
[2025-06-10] MEDS: Mineral Oil/Petrolatum Cr 1.75oz Bottle 1 APPLIC TOPICAL (08:15)
[2025-06-10 15:00] VITALS: BMI 20.3
[2025-06-10 16:00] VITALS: BP 129/73; PULSE 120; RESP 16; TEMP 36.3; O2SAT 96
--- NOTE | 2025-06-10 17:05 | CASEMGMT ---
Social Work SW met with patient, , two sons and DIL for requested family meeting. opened meeting with question on written information from [employer] on pt's cognitive testing where he scored 42% of cognitive capacity, requesting details. SW voiced the METAL FRAMER was the one to administer the evaluation and would be able to provide more detailed explanations, but the written results the has are individual to the pt. SW attempted to best explain that the pt is not cognitively capable to problem solve, comprehend, poor memory and carry-over, poor safety and decision making, at this time. Pt has not made improvements thus far with ST. SW asked pt directly about his goals of care and held discussion. Pt was emotional reflecting on past life experiences, the losses of close family members, including his son, and voiced if I have to live like this I don't want to keep going - but I don't want to commit suicide!!. SW explored statement further and did confirm pt does not have intent or thoughts on suicide. Pt remains forward thinking and voiced wanting to keep working with therapy to improve and regain independence. SW acknowledged pt's feelings and wishes. SW did inform family that pt has been more emotional this past week, voicing a lot of life reflection and reminiscing of memories. Staff have observed decline in mood and concerned for future. also inquired how pt was doing physically. SW provided updated information from [facility] that pt is needing x2 assist, poor motor planning which also impedes his progress. If pt could have a lift chair to eliminate the heavy physical lift for STS, then pt is x1A, but from toileting or another surface, pt is a x2A for tasks. Recommending 24/7 care. Offered to have pt use brief overnight to eliminate need for care overnight, but pt was not agreeable to that idea and prefers to toilet. Family asked several questions and sought clarification. Pt exhibited his cognitive impairment with repeating information and asking the same questions, having difficulty comprehending the information. SW explained in detail the options for DC - hiring PARKING INSPECTOR OOP with skilled HHC or LTC OOP with part B therapies. Offered to provide resources for both at any time. Son, Gaurav, participated in discussion and began asking further questions on increasing therapy time/sessions, wanting to increase the opportunity for movement. MARGIE explained since pt is needing two people to assist him, the EARLY CHILDHOOD EDUCATION COORDINATOR and TOPETE are treating the pt together to optimize their therapy session. If pt improves to a one person assist, those sessions can be and happen twice a day. Son asked if therapy could come once in the morning and once in the afternoon. SW explained the pt is tolerating the amount of therapy he is currently receiving, and reiterated the cotx. Son asked if having another therapy session could help with movement and improvement. SW reiterated pt is unable to tolerate more therapy at this time, pt fatigues throughout the day, and the insurance guides the amount of therapy given to the pt. Son asked about Inpatient Rehab as that is more therapy. SW educated that a pt is required to participate in 3 hrs/day of therapy and reiterated pt cannot tolerate that amount daily, thus pt is not eligible for that unit. Son asked again about increasing the amount of therapy for the pt. SW acknowledged and praised son for advocating for his dad, but respectfully stated this worker is kindly trying to tell the son that the pt is not tolerating the therapy; he has been admitted for a month and not improving. Explained the myth is that therapy is beneficial to all patients, but that is now always true. Therapy can make a pt worse, weaker and the body may be at that point with his dad. Given that pt is having life reflections, the pt may be going the opposite direction. Son then expressed understanding, along with the rest of the family. SW sensitive to the topic of conversation and acknowledged the difficulty in this discussion. SW offered ongoing support and assistance with navigating DC planning. Family aware insurance update is 06/16 and continued stay is not guaranteed, but without progress, DC is near. Family appreciative of SWs time and explanation. SW will continue to follow. Time Spent: 60 minutes Olivia Colon PROPELLER INSPECTOR BASKET ASSEMBLER
[2025-06-10 17:59] VITALS: PULSE 74
[2025-06-11] MEDS: Ensure Plus High Protein 120 ML LIQUID PO ×4 (08:43→20:50)
[2025-06-11] MEDS: Vitamin B Comp W-C Capsule 1 CAP PO (08:44)
[2025-06-11] MEDS: Cholecalciferol (VIT D3) 25 MCG TABLET (1,000 UNITS) PO (08:44)
[2025-06-11] MEDS: Psyllium 1 PACKET PO (08:44)
[2025-06-11] MEDS: Aspirin E.C. 81 MG Tablet PO (08:44)
[2025-06-11] MEDS: prednisoLONE eye drops (5 mL) 1 DROP OPTH.BTL 1 DRP LEFT EYE ×4 (08:48→20:52)
[2025-06-11] MEDS: BRIMONIDINE 0.2% 5ML BOTTLE 1 DRP RIGHT EYE ×3 (08:53→20:52)
[2025-06-11] MEDS: Mineral Oil/Petrolatum Cr 1.75oz Bottle 1 APPLIC TOPICAL (08:53)
[2025-06-11] MEDS: Timolol 0.5% 5ML OPTH.BTL 1 DRP RIGHT EYE ×3 (08:53→20:52)
[2025-06-11] MEDS: Sodium Chloride 15ML DROPS 1 DRP LEFT EYE ×4 (08:54→20:50)
[2025-06-11 14:53] VITALS: BP 137/71; PULSE 82; RESP 24; TEMP 36.4; O2SAT 96
[2025-06-11 16:28] VITALS: PULSE 82; RESP 17; O2SAT 96
[2025-06-12 05:17] VITALS: BP 135/72; PULSE 85; RESP 16; TEMP 36.5; O2SAT 95
[2025-06-12] MEDS: prednisoLONE eye drops (5 mL) 1 DROP OPTH.BTL 1 DRP LEFT EYE ×4 (09:09→21:39)
[2025-06-12] MEDS: Vitamin B Comp W-C Capsule 1 CAP PO (09:10)
[2025-06-12] MEDS: Psyllium 1 PACKET PO (09:10)
[2025-06-12] MEDS: Sodium Chloride 15ML DROPS 1 DRP LEFT EYE ×4 (09:11→21:38)
[2025-06-12] MEDS: BRIMONIDINE 0.2% 5ML BOTTLE 1 DRP RIGHT EYE ×3 (09:11→21:38)
[2025-06-12] MEDS: Timolol 0.5% 5ML OPTH.BTL 1 DRP RIGHT EYE ×4 (09:11→21:49)
[2025-06-12] MEDS: Aspirin E.C. 81 MG Tablet PO (09:11)
[2025-06-12] MEDS: Ensure Plus High Protein 120 ML LIQUID PO ×4 (09:12→21:46)
[2025-06-12] MEDS: Mineral Oil/Petrolatum Cr 1.75oz Bottle 1 APPLIC TOPICAL (09:12)
[2025-06-12] MEDS: Cholecalciferol (VIT D3) 25 MCG TABLET (1,000 UNITS) PO (09:13)
[2025-06-12 09:25] VITALS: BP 143/68; PULSE 92; RESP 15; TEMP 36.6; O2SAT 95
--- NOTE | 2025-06-12 14:32 | NURSING ---
Dr. Partida Notified of HR of 131 pt denies any signs or symptoms at this time rhythm is reg. N.O. received for EKG and Metoprolol Tartrate 25mg x1 dose. Orders read back.
--- NOTE | 2025-06-12 14:37 | EKG12_ITS ---
Test Reason : tachy Blood Pressure : */* mmHG Vent. Rate : 130 BPM Atrial Rate : 130 BPM P-R Int : 166 ms QRS Dur : 80 ms QT Int : 300 ms P-R-T Axes : 5 -41 35 degrees QTcB Int : 441 ms Sinus tachycardia Left axis deviation Minimal voltage criteria for LVH, may be normal variant ( R in aVL ) Inferior infarct , age undetermined Abnormal ECG No previous ECGs available Confirmed by LEEANNE MA ([id number]), electronic news gathering editor CLARE GLEZ ([id number]) on 06/16/2025 6:46:12 AM Referred By: Kimo Partida Confirmed By: LEEANNE MA
[2025-06-12 14:57] VITALS: BP 107/64; PULSE 131
[2025-06-12 15:03] VITALS: BP 107/64; PULSE 131; RESP 16; TEMP 36.7; O2SAT 96
--- NOTE | 2025-06-13 00:22 | NURSING ---
Patient stating he is having difficulty getting to sleep, but refused sleep aide. Call light within reach.
[2025-06-13 05:53] LABS: Hematocrit 34.2 % (40-54); Hemoglobin 11.3 g/dL (13.0-16.5); Immature Granulocytes Count 0.040 X10^3/uL (0.0-0.0); Mean Corp Hgb Conc 33.0 g/dL (32-36); Mean Corpuscular Volume 96.3 fL (80-94); Mean Platelet Vol. 9.2 fl (6.2-12.0); NRBC Flagged by Analyzer 0 % (0-5); Platelet Count 371 K/mm3 (150-450); RBC Distribution Width CV 13.9 % (11.6-14.6); RBC Distribution Width SD 49.1 fl (35.1-43.9); Red Blood Count 3.55 M/mm3 (4.6-6.2); White Blood Count 9.0 K/mm3 (4.4-11.0)
[2025-06-13 07:19] LABS: Anion Gap 9 (5-15); BUN 35 mg/dL (4-19); BUN/Creat Ratio 44.1 RATIO (10-20); Calcium,Total 8.9 mg/dL (7.6-11.0); Carbon Dioxide 27.5 mmol/L (21.0-32.0); Chloride 106 mmol/L (98-108); Estimated Creatinine Clearance 63.89 ml/min (50-250); Glucose 102 mg/dL (70-99); Potassium 4.5 mmol/L (3.3-5.1)
[2025-06-13 07:54] VITALS: BP 150/79; PULSE 94; RESP 17; TEMP 36.2; O2SAT 97
[2025-06-13] MEDS: prednisoLONE eye drops (5 mL) 1 DROP OPTH.BTL 1 DRP LEFT EYE ×4 (07:57→20:48)
[2025-06-13] MEDS: Psyllium 1 PACKET PO (07:58)
[2025-06-13] MEDS: Vitamin B Comp W-C Capsule 1 CAP PO (07:58)
[2025-06-13] MEDS: Ensure Plus High Protein 120 ML LIQUID PO ×4 (07:58→20:53)
[2025-06-13] MEDS: Cholecalciferol (VIT D3) 25 MCG TABLET (1,000 UNITS) PO (07:58)
[2025-06-13] MEDS: Aspirin E.C. 81 MG Tablet PO (07:58)
[2025-06-13] MEDS: Mineral Oil/Petrolatum Cr 1.75oz Bottle 1 APPLIC TOPICAL (07:59)
[2025-06-13] MEDS: BRIMONIDINE 0.2% 5ML BOTTLE 1 DRP RIGHT EYE ×3 (08:00→20:50)
[2025-06-13] MEDS: Timolol 0.5% 5ML OPTH.BTL 1 DRP RIGHT EYE ×3 (08:00→20:51)
[2025-06-13] MEDS: Sodium Chloride 15ML DROPS 1 DRP LEFT EYE ×4 (08:08→20:57)
[2025-06-13 08:12] VITALS: PULSE 94; RESP 16; O2SAT 98
--- NOTE | 2025-06-13 09:21 | PHA.CONS_ITS ---
Documented by User: Amador Sarabia 06/13/25 10:20 TCU RX Drug Regimen Review Subjective/Objective Subjective/Objective Subjective: TCU monthly drug regimen review. 84 year old male with below past medical history hospitalized for failure to thrive 2/2 stroke, ICH, complicated by hyponatremia, possible NPH, admitted to TCU with debility, here for rehabilitation, strengthening, prior to discharge home with and son. Objective: Allergies oxycodone Adverse Reaction (Verified 05/15/25 15:46) mental status change tramadol Adverse Reaction (Verified 05/15/25 15:46) Mental Status Change Current Medications Generic Name Dose Route Start Last Admin Trade Name Freq PRN Reason Stop Dose Admin Acetaminophen 1,000 mg 05/23/25 08:03 06/13/25 08:05 Acetaminophen 500 Mg Tablet PO 500 mg Q8H PRN PRN Administration Pain Score 1-10 Artificial Tears 1 drp 05/15/25 16:02 Carboxymethylcellulose Sodium 1 Drp Drops OPHTHALMIC Q6H PRN dry eyes Aspirin 81 mg 05/16/25 08:00 06/13/25 07:58 Aspirin E.C. 81 Mg Tablet PO 81 mg BREAKFAST NICA Administration Brimonidine Tartrate 1 drp 05/17/25 16:00 06/13/25 08:00 Brimonidine 0.2% 5ml Bottle RIGHT EYE 1 drp 0800,1600,2000 NICA Administration Calamine/Phenol 1 applic 05/15/25 22:00 06/13/25 07:59 Menthol/Lanolin/Calamine/Znox 113 Gm Tube TOPICAL 1 applic BID NICA Administration Protocol Calcium Carbonate 500 mg 05/15/25 15:04 Calcium Carbonate 500 Mg Tablet PO DAILY PRN DYSPEPSIA Cholecalciferol 25 mcg 05/16/25 10:00 06/13/25 07:58 Cholecalciferol (Vit D3) 25 Mcg Tablet (1,000 Units) PO 25 mcg DAILY NICA Administration Doxepin HCl 10 mg 05/23/25 08:03 06/02/25 00:19 Doxepin Hydrochloride 10 Mg Capsule PO 10 mg QHS PRN Administration INSOMNIA Enoxaparin Sodium 40 mg 05/18/25 10:00 06/13/25 07:57 Enoxaparin 40 Mg/0.4 Ml Syringe SC 40 mg DAILY NICA Administration Multi-Ingredient Ointment 1 applic 05/23/25 12:00 06/13/25 07:59 Mineral Oil/Petrolatum Cr 1.75oz Bottle TOPICAL 1 applic DAILY NICA Administration Multivitamins 1 tablet 05/22/25 12:00 06/12/25 11:02 Multivitamins,Therapeutic Tablet PO 1 tablet LUNCH NICA Administration Multivitamins 1 cap 05/22/25 08:00 06/13/25 07:58 Vitamin B Comp W-C Capsule PO 1 cap DAILYCM NICA Administration Nitroglycerin 0.4 mg 05/15/25 18:56 Nitroglycerin (Inpatient Use) 0.4 Mg Tab.Subl SL Q5M PRN CARDIAC/CHEST PAIN Nutritional Formula (Lactose Free) 120 ml 06/01/25 08:00 06/13/25 07:58 Ensure Plus High Protein 120 Ml Liquid PO 120 ml 0800,1200,1700,2200 NICA Administration Nystatin 1 applic 05/17/25 10:00 06/13/25 08:00 Nystatin Powder 15gm Bottle TOPICAL 1 applic BID NICA Administration Protocol Pantoprazole Sodium 40 mg 05/16/25 10:00 06/13/25 07:58 Pantoprazole Sodium 40 Mg Tablet PO 40 mg DAILY NICA Administration Prednisolone Acetate 1 drp 05/22/25 12:00 06/13/25 07:57 Prednisolone Eye Drops (5 Ml) 1 Drop Opth.Btl LEFT EYE 1 drp 0800,1200,1600,2000 NICA Administration Psyllium Hydrophilic Mucilloid 1 packet 05/16/25 10:00 06/13/25 07:58 Psyllium 1 Packet PO 1 packet DAILY NICA Administration Sodium Chloride 10 - 40 ml 05/15/25 15:04 05/16/25 22:44 0.9% Saline Lock 10 Ml Syringe IV 10 ml UD PRN Administration SALINE FLUSH Sodium Chloride 1 drp 05/15/25 16:00 06/13/25 08:08 Sodium Chloride 15ml Drops LEFT EYE 1 drp 0800,1200,1600,2000 NICA Administration Sodium Chloride 1 gm 05/22/25 08:00 06/13/25 07:58 Sodium Chloride 1 Gm Tablet PO 1 gm TID@0800,1400,2200 NICA Administration Tamsulosin HCl 0.4 mg 05/17/25 22:00 06/12/25 21:43 Tamsulosin Hcl 0.4 Mg Capsule PO 0.4 mg QHS NICA Administration Timolol Maleate 1 drp 05/17/25 16:00 06/13/25 08:00 Timolol 0.5% 5ml Opth.Btl RIGHT EYE 1 drp 0800,1600,1999 NICA Administration Triamcinolone Acetonide 0.1 applic 05/15/25 15:09 06/11/25 17:20 Triamcinolone Acetonide 0.1% Cream 15 Gm TOPICAL 0.1 applic BID PRN PRN Administration itch Protocol Problem List Xerosis cutis (Acute) 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) GERD (gastroesophageal reflux disease) (Acute) Irritable bowel syndrome (Acute) Hiatal hernia (Acute) Glaucoma (Acute) Anemia (Acute) Cervical spinal stenosis (Acute) Parkinsonism (Acute) NPH (normal pressure hydrocephalus) (Acute) Hyponatremia (Acute) ICH (intracerebral hemorrhage) (Acute) Ischemic stroke (Acute) Debility (Acute) Vital Signs Temp Pulse Resp BP Pulse Ox O2 Del Method O2 Flow Rate 97.2 F L 94 16 150/79 H 98 Room Air 0 06/13/25 07:54 06/13/25 08:12 06/13/25 08:12 06/13/25 07:54 06/13/25 08:12 06/13/25 08:12 05/15/25 20:41 FiO2 21 05/15/25 20:41 Oxygen Flow Rate (L/min) 0 Oxygen Delivery Method Room Air Weight: 68.152 kg Body Mass Index (BMI) 20.3 Sodium 143 mmol/L (133-145) 06/13/25 05:36 Potassium 4.5 mmol/L (3.3-5.1) 06/13/25 05:36 Chloride 106 mmol/L (98-108) 06/13/25 05:36 Carbon Dioxide 27.5 mmol/L (21.0-32.0) 06/13/25 05:36 Anion Gap 9 (5-15) 06/13/25 05:36 BUN 35 mg/dL (4-19) H 06/13/25 05:36 Creatinine 0.80 mg/dL (0.70-1.20) 06/13/25 05:36 Est GFR (MDRD) Non-Af 86 (>60) 06/13/25 05:36 BUN/Creatinine Ratio 44.1 RATIO (10-20) H 06/13/25 05:36 Glucose 102 mg/dL (70-99) H 06/13/25 05:36 Assessment/Plan: 1. Pain: Acetaminophen 1000 mg PO Q8H PRN pain. The patient has not required any PRN doses of acetaminophen so far this admission. Please continue to monitor pain levels, PRN medication usage, and LFTs (no recent LFTs documented). 2. Bowel: psyllium 1 packet PO daily. The patient's last bowel movement was documented on 06/12/25. Please continue to monitor for constipation, diarrhea, and bowel movements. 3. DVT prophylaxis: enoxaparin 40 mg SC daily. Please continue to monitor for s/s of a DVT such as pain/erythema/edema in an extremity, for s/s of bleeding/excessive bruising, hemoglobin levels (Hgb = 11.3 g/dL on 06/13/25), platelet counts (Plt = 371 K/mm3 on 06/13/25), and renal function (serum creatinine = 0.8 mg/dL with creatinine clearance ~ 63.9 mL/min on 06/13/25). 4. History of stroke: aspirin 81 mg PO daily. Please continue to monitor for s/s of stroke, for bleeding/excessive bruising, and for GI distress with aspirin administration as well as platelet counts (Plt = 371 K/mm3 on 06/13/25). 5. GERD: pantoprazole 40 mg PO daily, TUMS 500 mg PO daily PRN dyspepsia. The patient has not required any PRN doses of TUMS so far this admission. Please continue to monitor for s/s of GERD, for diarrhea that could indicate clostridium difficile infection, and for s/s of bone resorption such as fractures. 6. Neuropathy: gabapentin 100 mg PO BID. Please continue to monitor for nerve pain, renal function (serum creatinine = 0.8 mg/dL with creatinine clearance ~ 63.9 mL/min on 06/13/25), for lower extremity edema, and for drowsiness/dizziness/syncope/ataxia/falls. 7. Glaucoma: brimonidine 1 drop in right eye Q8, timolol 0.5% 1 drop in right eye Q8. Please continue to monitor for s/s of worsening vision, eye health, for dry eyes, and heart rates (recent range = 74-131 beats/min). 8. Dry eyes: artificial tears 1 drop in each eye Q6 PRN dry eyes, sodium chloride 1 drop in left eye 4x daily. The patient has not required any PRN doses of artificial tears so far this admission. Please continue to monitor for dry eyes and for PRN medication administration. 9. Eye inflammation: prednisolone 1 drop in the left eye BID. Please continue to monitor for eye redness and inflammation. 10. Coronary artery disease: nitroglycerin 0.4 mg SL Q5M PRN chest pain. The patient has not required any PRN doses of nitroglycerin so far this admission. Please continue to monitor for s/s of CAD, chest pain, shortness of breath, and PRN medication administration. 11. BPH: tamsulosin 0.4 mg PO daily. Please continue to monitor for s/s of urinary retention, urine stream, for s/s of orthostasis, and blood pressures (recent range = 107/64 - 150/79 mmHg). 12. Hyponatremia: sodium chloride 1 gram PO BID. Please continue to monitor hydration status and sodium levels (Na = 143 mmol/L on 06/13/25). 13. Vitamin D deficiency: cholecalciferol 25 mcg PO daily. Please continue to monitor for s/s of vitamin D deficiency and vitamin D levels (no recent levels documented). 14. Leg cramps: vitamin B complex 1 tablet PO daily. Please continue to monitor for leg cramps. 15. Insomnia: melatonin 3 mg PO QHS. Please continue to monitor for insomnia, for drowsiness and for dizziness. 16. Nutrition: multivitamin 1 tablet PO daily, ensure plus high protein PO X4 times daily. Please continue to monitor overall nutritional status. 17. Skin irritation: triamcinolone 0.1% 1 application topically BID PRN itching, Calmoseptine 1 application topically BID, Aquaphor 1 application topically daily, Nystatin powder 1 application topically BID. The patient has not required any triamcinolone administrations so far this admission. Please continue to monitor for dry skin and for PRN medication administration. Assessment/Plan for indications treated with psychotropic medications: 1. Insomnia: trazodone 50 mg PO QHS, doxepin 10 mg tablet PO QHS. Please see provider note regarding stable chronic long-term use GDR not recommended. Mo nitor for efficacy including resident symptoms, behaviors and indications of distress. Monitor for insomnia and drowsiness. Monitor for tolerability including mental status, cognition, excessive sleepiness, blurred vision, constipation, urinary retention, dry mouth, withdrawal or decreased participation in activities and decline in physical functioning. Maximize use of nonpharmacologic/behavioral interventions to facilitate dose reduction or discontinuation as appropriate. Please evaluate the appropriateness of GDR unless contraindicated. If appropriate, GDR should be attempted in 2 separate quarters within the first year of use or admission to TCU. If GDR attempted, monitor resident symptoms/behaviors. Monitor for diarrhea, nausea, headache, anxiety or drowsiness, suicidal thoughts or behaviors (Boxed Warning), symptoms of bleeding, symptoms of serotonin syndrome (including agitation, confusion, hyperreflexia, rigidity/myoclonus, tremor, tachycardia, tachypnea), sodium levels (last Na = 143 mmol/L on 06/13/25). Medical chart and medication regimen reviewed. The following medication irregularities or issues were identified: - No recommendations for resident at this time. Date Date of Note: 06/13/25 Documented by User: Dr. Kimo Partida MD 06/13/25 10:33 TCU RX Drug Regimen Review Provider Comments Provider responsibility Provider Comments to Recommendations by Pharmacy Agree
--- NOTE | 2025-06-13 10:56 | CASEMGMT ---
Social Work Phone call received from pt's son Florencia Garcias who states that he is understanding that pt will be discharged on Monday. MARGIE explained that NRD with insurance is Monday, and if pt is denied continued services, the earliest pt would be discharge is . Florencia expressing understanding of this. Florencia states that family has purchased a lift chair and BSC for pt and rented a wheelchair. [facility], but are uncertain when it will be delivered. MARGIE answered additional questions regarding how medication changes are ordered at discharge. Florencia appreciative of information. MARGIE will continue to follow for dc planning. TIM Lux
[2025-06-13 16:00] VITALS: BP 148/73; PULSE 89; RESP 18; TEMP 36.5; O2SAT 95
[2025-06-13] MEDS: Doxepin Hydrochloride 10 MG Capsule PO (20:53)
[2025-06-14] MEDS: Ensure Plus High Protein 120 ML LIQUID PO ×4 (08:05→20:54)
[2025-06-14] MEDS: Psyllium 1 PACKET PO (08:05)
[2025-06-14] MEDS: BRIMONIDINE 0.2% 5ML BOTTLE 1 DRP RIGHT EYE ×3 (08:06→20:51)
[2025-06-14] MEDS: prednisoLONE eye drops (5 mL) 1 DROP OPTH.BTL 1 DRP LEFT EYE ×4 (08:06→20:50)
[2025-06-14] MEDS: Sodium Chloride 15ML DROPS 1 DRP LEFT EYE ×4 (08:06→20:56)
[2025-06-14] MEDS: Timolol 0.5% 5ML OPTH.BTL 1 DRP RIGHT EYE ×3 (08:06→20:52)
[2025-06-14] MEDS: Aspirin E.C. 81 MG Tablet PO (08:07)
[2025-06-14] MEDS: Vitamin B Comp W-C Capsule 1 CAP PO (08:07)
[2025-06-14] MEDS: Cholecalciferol (VIT D3) 25 MCG TABLET (1,000 UNITS) PO (08:08)
[2025-06-14] MEDS: Mineral Oil/Petrolatum Cr 1.75oz Bottle 1 APPLIC TOPICAL (08:10)
[2025-06-14 15:04] VITALS: BP 141/60; PULSE 100; RESP 20; TEMP 37.1; O2SAT 93
[2025-06-14 20:00] VITALS: PULSE 94; RESP 16; O2SAT 96
[2025-06-15 02:38] VITALS: PULSE 82; RESP 16; O2SAT 94
[2025-06-15] MEDS: Sodium Chloride 15ML DROPS 1 DRP LEFT EYE ×4 (08:29→20:28)
[2025-06-15] MEDS: Psyllium 1 PACKET PO (08:30)
[2025-06-15] MEDS: BRIMONIDINE 0.2% 5ML BOTTLE 1 DRP RIGHT EYE ×3 (08:30→20:23)
[2025-06-15] MEDS: Timolol 0.5% 5ML OPTH.BTL 1 DRP RIGHT EYE ×3 (08:30→20:23)
[2025-06-15] MEDS: Cholecalciferol (VIT D3) 25 MCG TABLET (1,000 UNITS) PO (08:30)
[2025-06-15] MEDS: Vitamin B Comp W-C Capsule 1 CAP PO (08:30)
[2025-06-15] MEDS: prednisoLONE eye drops (5 mL) 1 DROP OPTH.BTL 1 DRP LEFT EYE ×4 (08:30→20:21)
[2025-06-15] MEDS: Aspirin E.C. 81 MG Tablet PO (08:31)
[2025-06-15] MEDS: Ensure Plus High Protein 120 ML LIQUID PO ×4 (08:31→20:34)
[2025-06-15] MEDS: Mineral Oil/Petrolatum Cr 1.75oz Bottle 1 APPLIC TOPICAL (08:32)
[2025-06-15 16:00] VITALS: BP 128/68; PULSE 93; RESP 15; TEMP 36.6; O2SAT 94
[2025-06-16] MEDS: Vitamin B Comp W-C Capsule 1 CAP PO (09:00)
[2025-06-16] MEDS: Cholecalciferol (VIT D3) 25 MCG TABLET (1,000 UNITS) PO (09:00)
[2025-06-16] MEDS: Aspirin E.C. 81 MG Tablet PO (09:00)
[2025-06-16] MEDS: Psyllium 1 PACKET PO (09:00)
[2025-06-16] MEDS: Sodium Chloride 15ML DROPS 1 DRP LEFT EYE ×4 (09:16→23:19)
[2025-06-16] MEDS: BRIMONIDINE 0.2% 5ML BOTTLE 1 DRP RIGHT EYE ×3 (09:16→23:15)
[2025-06-16] MEDS: Timolol 0.5% 5ML OPTH.BTL 1 DRP RIGHT EYE ×3 (09:16→23:17)
[2025-06-16] MEDS: prednisoLONE eye drops (5 mL) 1 DROP OPTH.BTL 1 DRP LEFT EYE ×4 (09:16→23:18)
[2025-06-16] MEDS: Mineral Oil/Petrolatum Cr 1.75oz Bottle 1 APPLIC TOPICAL (09:17)
[2025-06-16] MEDS: Ensure Plus High Protein 120 ML LIQUID PO ×4 (09:17→23:19)
[2025-06-16 11:00] VITALS: BP 135/59; PULSE 87; RESP 17; TEMP 36.4; O2SAT 96
--- NOTE | 2025-06-16 11:56 | CASEMGMT ---
Addendum entered by Olivia Colon 06/16/25 15:45: Received return call from Gaurav who provided accurate phone number. SW updated in chart. Gaurav stated the [facility] the [facility] and [facility] bed could take up to two weeks to be delivered. SW left VM with insurance reviewer with information. Will continue to follow. Addendum entered by Olivia Colon 06/16/25 15:35: SW phoned the but the phone number listed is incorrect. left a VM with sonGaurav. The sonFlorencia's phone number is not listed. Will continue to attempt Original Note: Social Work [facility]. SW reviewed notes from Monday and confirmed son has obtained several pieces of DME and ordered a hospital bed [facility] the [facility]; unknown day of delivery. Reviewer inquired about DC timeframe. SW explained per written communications prior, [facility] does not allow facility to cut the pt, but for the family to be in agreement with DC date. If family is not in agreement with DC, then insurance will review with MD on setting a DC date. SW explained that is the case then, and educated to family meeting on 06/10. Family is struggling to realize that pt is not improving after the month stay in TCU and would benefit from the insurance issuing the DC to provide a deadline for decision making, as the family is wanting the pt to continue as long as possible in TCU. Reviewer agreed to discuss with MD, and would like timeframe on hospital bed delivery. SW agreed and will contact son or [facility] to obtain, then update the reviewer. Olivia DUMONT
[2025-06-17] MEDS: Sodium Chloride 15ML DROPS 1 DRP LEFT EYE ×4 (07:54→22:04)
[2025-06-17] MEDS: Vitamin B Comp W-C Capsule 1 CAP PO (07:54)
[2025-06-17] MEDS: Aspirin E.C. 81 MG Tablet PO (07:54)
[2025-06-17] MEDS: Ensure Plus High Protein 120 ML LIQUID PO ×4 (07:54→22:06)
[2025-06-17] MEDS: Timolol 0.5% 5ML OPTH.BTL 1 DRP RIGHT EYE ×3 (07:54→22:05)
[2025-06-17] MEDS: Cholecalciferol (VIT D3) 25 MCG TABLET (1,000 UNITS) PO (07:54)
[2025-06-17] MEDS: prednisoLONE eye drops (5 mL) 1 DROP OPTH.BTL 1 DRP LEFT EYE ×4 (07:55→22:04)
[2025-06-17] MEDS: BRIMONIDINE 0.2% 5ML BOTTLE 1 DRP RIGHT EYE ×3 (07:55→22:04)
[2025-06-17] MEDS: Mineral Oil/Petrolatum Cr 1.75oz Bottle 1 APPLIC TOPICAL (07:56)
[2025-06-17 08:04] VITALS: BP 111/69; PULSE 87; RESP 16; TEMP 36.3; O2SAT 92
[2025-06-17] MEDS: Psyllium 1 PACKET PO (09:17)
--- NOTE | 2025-06-17 10:33 | CASEMGMT ---
Social Work Insurance issued LCD 06/19, DC 06/20. SW phoned to inform of DC date and explained appeal rights. denied appeal and will call [facility] about [facility] date for [facility] bed. inquired about time for DC. SW explained this worker will need to discuss with therapy if pt is able to complete a car tx or if SW needs to coordinate w/c transport. expressed understanding. SW inquired about skilled HHC for SN/GANT/SW, and expressed uncertainty for benefit of continuing with therapy. unsure about decision. SW also broached topic of palliative care at [place]. Educated to services. expressed interest in services but requested time to process. SW agreed and will f/u with after therapy responds on transport. agreed. - SW spoke with therapy on DC needs - w/c transport, tiffani lift, and confirmed no need for HHC therapy if does not elect. SW returned call to to explain above. inquired if pt will ever be able to do a car tx. SW noted that pt has not improved with transfers recently and unsure about future improvement. SW educated that insurance may not cover cost of transport. expressed understanding and agreed to transport. SW inquired about tiffani lift and requested and son attend training with therapy. agreed and will be present tomorrow afternoon. SW to notify therapy and will coordinate tiffani through [employer],. SW educated that is a rental DME and copays will be discussed by [employer]. SW offered if [facility] cannot provide hospital bed prior to DC, and pt needs it, SW can coordinate through [employer] for rental as well. to notify this worker if she wants the hospital bed. SW will start DC plans while decides on other options. IDT updated. - SW phoned Physician's to schedule w/c transport for 1100. Plan: DC home with and son 06/20, HHC SN/GANT/SW, tiffani lift, w/c transport 1100 Olivia BOWERSW
[2025-06-17 15:00] VITALS: BMI 20.9
[2025-06-17 16:00] VITALS: BP 135/75; PULSE 101; RESP 15; TEMP 36.4; O2SAT 97
--- NOTE | 2025-06-17 19:54 | DS.PCM_ITS ---
Providers Date of Admission: 05/15/25 Consultations 05/21/25 17:01 Consult: Podiatry Routine Consulting Provider: Shahzad Mckeon Reason for Consult: Toenail trim. EMERGENT Consult: No MD Notified: Yes Date Notified: 05/22/25 Time Notified: 07:40 Method of Notification: Text Reason For Visit: COGNITIVE DECLINE AND FTT Diagnosis Discharge Diagnosis (1) Debility: Status: Acute Code(s): R53.81 - Other malaise (2) Ischemic stroke: Status: Acute Code(s): I63.9 - Cerebral infarction, unspecified (3) ICH (intracerebral hemorrhage): Status: Acute Code(s): I61.9 - Nontraumatic intracerebral hemorrhage, unspecified (4) Hyponatremia: Status: Acute Code(s): E87.1 - Hypo-osmolality and hyponatremia (5) NPH (normal pressure hydrocephalus): Status: Acute Code(s): G91.2 - (Idiopathic) normal pressure hydrocephalus (6) Parkinsonism: Status: Acute Code(s): G20.C - Parkinsonism, unspecified (7) Cervical spinal stenosis: Status: Acute Code(s): M48.02 - Spinal stenosis, cervical region (8) Anemia: Status: Acute Code(s): D64.9 - Anemia, unspecified (9) Glaucoma: Status: Acute Code(s): H40.9 - Unspecified glaucoma (10) Hiatal hernia: Status: Acute Code(s): K44.9 - Diaphragmatic hernia without obstruction or gangrene (11) Irritable bowel syndrome: Status: Acute Code(s): K58.9 - Irritable bowel syndrome, unspecified (12) GERD (gastroesophageal reflux disease): Status: Acute Code(s): K21.9 - Gastro-esophageal reflux disease without esophagitis Plan 84 year old male with below past medical history hospitalized for failure to thrive 2/2 stroke, ich, complicated by hyponatremia, possible NPH, admitted to TCU with debility, here for rehabilitation, strengthening, prior to discharge home with and son. * Debility - PT/OT. * Dysphagia. * Pain - Tylenol 1000mg q8 prn. * Bowel - Metamucil 1 packet daily. * Adult immunization - Administer pneumonia vaccine, covid vaccine, flu vaccine as appropriate. * DVT prophylaxis - Lovenox 40mg sc daily. * NPH- follow up with Neurology after discharge. * Stroke - Aspirin 81mg daily. * Glaucoma - Brimonidine 1gtt od q8, Timoptic 1gtt od q8. * GERD - Pantoprazole 40mg daily, TUMS 500mg daily prn. * Dry eyes - Artificial tears 1gtt ou q6, Sodium chloride 1gtt os qid. * Vitamin D deficiency - D3 25mcg daily. * Nutrition - MVI 1 tablet daily, Ensure Plus 120mL 4x/day. * Coronary artery disease - NTG 0.4mg sl q5m prn. * Eye inflammation - Prednisolone 1gtt os qid. * Dry eyes - Artificial tears 1gtt q6 prn, Sodium chloride 1gtt os 4x/day. * Hyponatremia - Sodium chloride 1gm tid, fluid restriction. * BPH - Tamsulosin 0.4mg qhs. * Skin irritation - Kenalog cream topical bid prn, Calmoseptine topical bid, Aquaphor topical daily. * Tinea Corporis - Nystatin powder topical bid. * CAD - NTG 0.4mg sl q5m prn.
--- NOTE | 2025-06-17 19:54 | PCM.DC.SUM ---
Providers Date of Admission: 05/15/25 Consultations 05/21/25 17:01 Consult: Podiatry Routine Consulting Provider: Shhazad Mckeon Reason for Consult: Toenail trim. EMERGENT Consult: No MD Notified: Yes Date Notified: 05/22/25 Time Notified: 07:40 Method of Notification: Text Reason For Visit: COGNITIVE DECLINE AND FTT Diagnosis Discharge Diagnosis (1) Debility: Status: Acute Code(s): R53.81 - Other malaise (2) Ischemic stroke: Status: Acute Code(s): I63.9 - Cerebral infarction, unspecified (3) ICH (intracerebral hemorrhage): Status: Acute Code(s): I61.9 - Nontraumatic intracerebral hemorrhage, unspecified (4) Hyponatremia: Status: Acute Code(s): E87.1 - Hypo-osmolality and hyponatremia (5) NPH (normal pressure hydrocephalus): Status: Acute Code(s): G91.2 - (Idiopathic) normal pressure hydrocephalus (6) Parkinsonism: Status: Acute Code(s): G20.C - Parkinsonism, unspecified (7) Cervical spinal stenosis: Status: Acute Code(s): M48.02 - Spinal stenosis, cervical region (8) Anemia: Status: Acute Code(s): D64.9 - Anemia, unspecified (9) Glaucoma: Status: Acute Code(s): H40.9 - Unspecified glaucoma (10) Hiatal hernia: Status: Acute Code(s): K44.9 - Diaphragmatic hernia without obstruction or gangrene (11) Irritable bowel syndrome: Status: Acute Code(s): K58.9 - Irritable bowel syndrome, unspecified (12) GERD (gastroesophageal reflux disease): Status: Acute Code(s): K21.9 - Gastro-esophageal reflux disease without esophagitis Plan 84 year old male with below past medical history hospitalized for failure to thrive 2/2 stroke, ich, complicated by hyponatremia, possible NPH, admitted to TCU with debility, here for rehabilitation, strengthening, prior to discharge home with and son. Debility - PT/OT. Dysphagia. Pain - Tylenol 1000mg q8 prn. Bowel - Metamucil 1 packet daily. Adult immunization - Administer pneumonia vaccine, covid vaccine, flu vaccine as appropriate. DVT prophylaxis - Lovenox 40mg sc daily. NPH- follow up with Neurology after discharge. Stroke - Aspirin 81mg daily. Glaucoma - Brimonidine 1gtt od q8, Timoptic 1gtt od q8. GERD - Pantoprazole 40mg daily, TUMS 500mg daily prn. Dry eyes - Artificial tears 1gtt ou q6, Sodium chloride 1gtt os qid. Vitamin D deficiency - D3 25mcg daily. Nutrition - MVI 1 tablet daily, Ensure Plus 120mL 4x/day. Coronary artery disease - NTG 0.4mg sl q5m prn. Eye inflammation - Prednisolone 1gtt os qid. Dry eyes - Artificial tears 1gtt q6 prn, Sodium chloride 1gtt os 4x/day. Hyponatremia - Sodium chloride 1gm tid, fluid restriction. BPH - Tamsulosin 0.4mg qhs. Skin irritation - Kenalog cream topical bid prn, Calmoseptine topical bid, Aquaphor topical daily. Tinea Corporis - Nystatin powder topical bid. CAD - NTG 0.4mg sl q5m prn. Leg cramps - Vitamin B complex 1 tablet daily. The following psychotropic medication is being started or the dose in being increased: Doxepin 10mg qhs. Psychotropic medication therapy is indicated for a diagnosis of: Insomnia. In my professional judgement, medication is necessary because the resident?s symptoms cause significant distress to the resident or a danger to the resident or others. Evaluation for underlying causes including medical illness and pain has been considered. The benefits of the medication are felt to outweigh potential harm. Nonpharmacologic/behavior interventions have been attempted but have not been effective or nonpharmacologic interventions are contraindicated for this patient. Potential benefits and risks of treatment and alternatives have been reviewed with resident/family and the resident/family have accepted psychotropic medication treatment. Please see nursing documentation. Medications at Discharge Home Medications aspirin 81 mg tablet 81 mg PO DAILY blood thinner 05/15/25 brimonidine 0.2 %-timolol 0.5 % eye drops (Combigan) 1 drp RIGHT EYE Q8 pressure in eye 05/15/25 multivitamin 1 tab PO DAILY supplement 05/15/25 nitroglycerin 0.4 mg sublingual tablet 0.4 mg sublingual Q5M chest pain 05/15/25 pantoprazole 40 mg tablet,delayed release 40 mg PO BID reflux 05/15/25 polyvinyl alcohol 1.4 % eye drops (Artificial Tears (polyvinyl alcohol)) 1 drp EACH EYE Q6H PRN dry eyes 05/15/25 prednisolone acetate 1 % eye drops,suspension (Pred Forte) 1 drp LEFT EYE Q6H inflammation 05/15/25 psyllium 1 packet PO DAILY bowels 05/15/25 sodium chloride 5 % eye drops (Obed 128) 1 drp LEFT EYE 4X/DAY dry eyes 05/15/25 tamsulosin 0.4 mg capsule 0.4 mg PO DAILY bladder 05/15/25 triamcinolone acetonide 0.1 % topical cream applic topical BID PRN PRN itch 05/15/25 vitamin B complex (B-Complex tablet) 1 tab PO DAILY supplement 05/15/25 acetaminophen 500 mg tablet 1,000 mg (2 x 500 mg) PO Q8H PRN PRN Pain Score 1-10 #0 tabs 06/17/25 doxepin 10 mg capsule 10 mg PO QHS PRN Insomnia 30 days #30 caps 06/17/25 sodium chloride 1,000 mg soluble tablet 1,000 mg PO TID@0800,1400,2200 30 days #90 tabs 06/17/25 Hospital Course Operations None Procedures None Summary of Care Provided Minutes Spent on Discharge: 35 Hospital Course: 84 year old male with below past medical history hospitalized for failure to thrive 2/2 stroke, ich, complicated by hyponatremia, possible NPH, admitted to TCU with debility, here for rehabilitation, strengthening, prior to discharge home with and son. Discharge home with and son 06/20/2025, [facility] SN/GANT/SW, Seamus lift, w/c transport 1100. Seamus lift: The transfer between bed and a chair or commode requires assistance of more than one person and without use of a lift, the patient would be bed-confined. Physical Exam Const alert Constitutional Narrative: Sleepy, but arouses easily. General Appearance: cooperative HEENT normocephalic Eyes PERRL and EOMs intact bilaterally Neck supple, no JVD and no carotid bruits Resp normal respiratory effort, normal air movement and clear to auscultation bilaterally Cardio regular rate and regular rhythm GI normal to inspection, nondistended, normoactive bowel sounds, non-tender and non-distended Extremity normal capillary refill General Extremity: Negative for edema Skin no rashes or lesions noted General Skin Exam: no breakdown Psych affect normal Appearance: appropriate Medical Records Data Medical Nutrition Assessment Dietitian: Malnutrition Criteria Met Start: 05/16/25 16:31 Freq: Status: Active Protocol: Document 06/02/25 13:43 SLA (Rec: 06/02/25 13:44 SLA [id number]) Nutrition Malnutrition Evidence of Yes Malnutrition Exists Malnutrition (severe Acute Illness/Injury ): Evidenced By Suboptimal Energy Intake (Moderate),Weight Loss (Severe ),Physical Changes (Moderate) Intake Problem Decreased Nutrient Needs (specify) Etiology fluid r/t hyponatremia Signs/Symptoms as evidenced by need for fluid restriction. 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 Also w/ muscle wasting/fat loss throughout body. PO INTAKE APPEARS TO BE IMPROVING Status Active Problem Recommendation Dietitian Continue regular diet w/ fluid restriction as ordered Recommendations/ by MD - dietary will only send magic cup w/ meals and Changes NO LIQUIDS and nsg to give all fluids - rec liberalize fluid restriction as able. Continue magic cup w/ meals tid and 4 oz EPHP 4x/day w/ medpass for increased nutrition if consumed Continue to follow and monitor for changes in res nutritional status and make additional rec as indicated Weight / BMI Weight Weight: 69.899 kg Body Mass Index (BMI) 20.9 ABG / Lab / Microbiology Data 06/13/25 05:36 06/13/25 05:36 Microbiology: Microbiology 05/23/25 14:50 Urine, Catheterized Urine Culture - Final Culture exhibits no growth. 05/23/25 15:00 Mucosa - Nasopharyngeal Respiratory Panel (PCR) - Final 05/23/25 15:00 Nasal Secretion SARS-CoV-2 Antigen (Rapid) - Final 05/19/25 08:25 Urine, Catheterized Urine Culture - Final Culture exhibits no growth. D/C Instructions Discharge Activity: Return to Normal Activity, May Shower and Use Walker Weight Bearing Status: Weight bearing as tolerated Call your doctor if you observe: Fever of 101 or Higher, Inability to urinate, Inability to have a bowel movement, Shortness of breath, Dizziness, Fainting spells, Swelling in the ankles, Chest pain and Uncontrolled pain DC O2, CPAP, BIPAP Needs Home O2 Discharge instructions: No Additional Instructions: Discharge home with and son 06/20/2025, [facility] SN/GANT/SW, Seamus lift, w/c transport 1100. Seamus lift: The transfer between bed and a chair or commode requires assistance of more than one person and without use of a lift, the patient would be bed-confined. Please Follow Up With: Kalyn Wellington CNP When: As scheduled. Meaningful Use Info Meaningful Use Meaningful Use Diagnoses (Choose all that apply): None applicable Discharge Plan Admission Admit Date/Time: 05/15/25 13:51 Primary Reason for Your Visit: Debility. Attending Provider: Kimo Partida Chi Consulting Providers: Shahzad Mckeon Instructions Additional Instructions / Restrictions: Discharge home with and son 06/20/2025, [facility] SN/GANT/SW, Seamus lift, w/c transport 1100. Seamus lift: The transfer between bed and a chair or commode requires assistance of more than one person and without use of a lift, the patient would be bed-confined. Discharge Orders/Prescriptions Prescriptions: New doxepin 10 mg Capsule 10 mg PO QHS PRN (Reason: Insomnia) 30 Days Qty: 30 0RF acetaminophen 500 mg Tablet 1,000 mg PO Q8H PRN PRN (Reason: Pain Score 1-10) Qty: 0 0RF sodium chloride 1,000 mg Tablet,Soluble 1,000 mg PO TID@0800,1400,2200 30 Days Qty: 90 0RF Continued aspirin 81 mg tablet 81 mg PO DAILY pantoprazole 40 mg tablet,delayed release (DR/EC) 40 mg PO BID brimonidine-timolol [Combigan] 0.2-0.5 % drops 1 drp RIGHT EYE Q8 multivitamin Tablet 1 tab PO DAILY nitroglycerin 0.4 mg tablet, sublingual 0.4 mg sublingual Q5M Rx Instructions: do not exceed 3 doses per episode polyvinyl alcohol [Artificial Tears (polyvin alc)] 1.4 % drops 1 drp EACH EYE Q6H PRN (Reason: dry eyes) prednisolone acetate [Pred Forte] 1 % drops,suspension 1 drp LEFT EYE Q6H psyllium Packet 1 packet PO DAILY Rx Instructions: mix 1 TBSP into at least 8 oz of water or juice before administering sodium chloride [Obed 128] 5 % drops 1 drp LEFT EYE 4X/DAY tamsulosin 0.4 mg capsule 0.4 mg PO DAILY triamcinolone acetonide 0.1 % cream topical BID PRN PRN (Reason: itch) vitamin B complex [B-Complex] Tablet 1 tab PO DAILY Discontinued Anti-Itch(diphenhyd) with Zinc 1-0.1 % cream 1 applic topical Q8H gabapentin 100 mg capsule 100 mg PO BID heparin (porcine) 5,000 unit/mL solution 5,000 unit subcut Q8H sodium chloride 1,000 mg tablet,soluble 1,000 mg PO BID trazodone 50 mg tablet 50 mg PO QHS acetaminophen 325 mg tablet 325 mg PO Q6H PRN (Reason: pain (scale score 1-10)) cholecalciferol (vitamin D3) 25 mcg (1,000 unit) capsule 25 mcg PO DAILY Vitamin B-12 50 mcg tablet 50 mcg PO DAILY melatonin 3 mg capsule 3 mg PO QHS PRN (Reason: sleep) calcium carbonate [Tums] 200 mg calcium (500 mg) tablet,chewable 200 mg PO DAILY PRN (Reason: dyspepsia) Disposition Disposition (needs filled in before D/C Order can be placed): Home Health Service
[2025-06-18] MEDS: BRIMONIDINE 0.2% 5ML BOTTLE 1 DRP RIGHT EYE ×3 (08:24→22:07)
[2025-06-18] MEDS: prednisoLONE eye drops (5 mL) 1 DROP OPTH.BTL 1 DRP LEFT EYE ×4 (08:24→22:06)
[2025-06-18] MEDS: Timolol 0.5% 5ML OPTH.BTL 1 DRP RIGHT EYE ×3 (08:24→22:09)
[2025-06-18] MEDS: Sodium Chloride 15ML DROPS 1 DRP LEFT EYE ×4 (08:25→22:08)
[2025-06-18] MEDS: Ensure Plus High Protein 120 ML LIQUID PO ×4 (08:25→22:13)
[2025-06-18] MEDS: Cholecalciferol (VIT D3) 25 MCG TABLET (1,000 UNITS) PO (08:26)
[2025-06-18] MEDS: Vitamin B Comp W-C Capsule 1 CAP PO (08:26)
[2025-06-18] MEDS: Aspirin E.C. 81 MG Tablet PO (08:26)
[2025-06-18] MEDS: Psyllium 1 PACKET PO (08:26)
[2025-06-18] MEDS: Mineral Oil/Petrolatum Cr 1.75oz Bottle 1 APPLIC TOPICAL (08:27)
[2025-06-18 08:36] VITALS: BP 125/85; PULSE 90; RESP 16; TEMP 36.4; O2SAT 98
--- NOTE | 2025-06-18 14:31 | PCA ---
pt to make PCP appt, no PCP listed on discharge
[2025-06-18 16:00] VITALS: BP 131/60; PULSE 87; RESP 22; TEMP 36.1; O2SAT 95
[2025-06-18 18:34] LABS: Anion Gap 10 (5-15); BUN 35 mg/dL (4-19); BUN/Creat Ratio 46.0 RATIO (10-20); Calcium,Total 9.0 mg/dL (7.6-11.0); Carbon Dioxide 25.0 mmol/L (21.0-32.0); Chloride 104 mmol/L (98-108); Estimated Creatinine Clearance 65.53 ml/min (50-250); Glucose 124 mg/dL (70-99); Potassium 4.5 mmol/L (3.3-5.1)
[2025-06-18 22:15] VITALS: RESP 17
[2025-06-19] MEDS: Vitamin B Comp W-C Capsule 1 CAP PO (08:04)
[2025-06-19] MEDS: Aspirin E.C. 81 MG Tablet PO (08:04)
[2025-06-19] MEDS: Psyllium 1 PACKET PO (08:06)
[2025-06-19] MEDS: Cholecalciferol (VIT D3) 25 MCG TABLET (1,000 UNITS) PO (08:06)
[2025-06-19] MEDS: Ensure Plus High Protein 120 ML LIQUID PO ×3 (08:08→16:58)
[2025-06-19] MEDS: Sodium Chloride 15ML DROPS 1 DRP LEFT EYE ×4 (08:09→22:58)
[2025-06-19] MEDS: BRIMONIDINE 0.2% 5ML BOTTLE 1 DRP RIGHT EYE ×3 (08:09→22:27)
[2025-06-19] MEDS: Timolol 0.5% 5ML OPTH.BTL 1 DRP RIGHT EYE ×3 (08:10→22:29)
[2025-06-19 08:14] VITALS: BP 132/77; PULSE 88; RESP 16; TEMP 36.6; O2SAT 96
[2025-06-19] MEDS: prednisoLONE eye drops (5 mL) 1 DROP OPTH.BTL 1 DRP LEFT EYE ×4 (08:36→22:28)
--- NOTE | 2025-06-19 11:33 | CASEMGMT ---
Social Work SW presented to pt's room where was present. SW inquired about HHC agency and palliative decision. has not decided on HHC agency yet. SW requested agency be selected and notify this worker today. expressed understanding. also stated she and pt have denied palliative care at this time. SW updated that PT recommending continued movement at home and will add PT to HHC order. appreciative. Olivia Colon INSOLE BUFFER COACH WIRER
[2025-06-19] MEDS: Mineral Oil/Petrolatum Cr 1.75oz Bottle 1 APPLIC TOPICAL (11:37)
[2025-06-19] MEDS: FLU VACCINE HIGH DOSE 25-26(65YR UP) 180 MCG/0.5 ML SYRINGE IM (13:17)
--- NOTE | 2025-06-19 13:56 | CASEMGMT ---
Social Work- SW introduced self and role to pt and pt . SW met with pt to administer BIMS assessment () and PHQ (06/05). SW spoke with pt and pt regarding pt depression. Pt reports that it is due to new circumstances with brain bleed and loss of function. Pt open to supports; SW discussed mental health support referrals. Pt would like to get home before making any decisions. Pt is agreeable to SW with [facility] to follow for support and potential later referrals. Pt reports needing a new C list; SW provided. Pt and pt selected [facility]. TCU SW notified. Pt and pt discussed tiffani use at home, initially expressing some concerns, but then agreeing to having a tiffani delivered for use at discharge. SW notified TCU SW. TIM Lau
--- NOTE | 2025-06-19 15:08 | CASEMGMT ---
Social [facility] They can accept and will contact for SOC. SW updated . Olivia Colon TMD TEACHER ASSISTANT BUS TRANSPORTATION MANAGER
[2025-06-20 06:03] LABS: Hematocrit 33.8 % (40-54); Hemoglobin 11.0 g/dL (13.0-16.5); Immature Granulocytes Count 0.040 X10^3/uL (0.0-0.0); Mean Corp Hgb Conc 32.5 g/dL (32-36); Mean Corpuscular Volume 97.4 fL (80-94); Mean Platelet Vol. 9.5 fl (6.2-12.0); NRBC Flagged by Analyzer 0 % (0-5); Platelet Count 304 K/mm3 (150-450); RBC Distribution Width CV 14.4 % (11.6-14.6); RBC Distribution Width SD 51.3 fl (35.1-43.9); Red Blood Count 3.47 M/mm3 (4.6-6.2); White Blood Count 10.1 K/mm3 (4.4-11.0)
[2025-06-20 06:34] LABS: Anion Gap 7 (5-15); BUN 28 mg/dL (4-19); BUN/Creat Ratio 41.6 RATIO (10-20); Calcium,Total 8.8 mg/dL (7.6-11.0); Carbon Dioxide 27.8 mmol/L (21.0-32.0); Chloride 105 mmol/L (98-108); Estimated Creatinine Clearance 65.53 ml/min (50-250); Glucose 100 mg/dL (70-99); Potassium 4.2 mmol/L (3.3-5.1)
[2025-06-20 07:00] VITALS: PULSE 90; RESP 17; O2SAT 93
[2025-06-20 08:00] VITALS: BP 154/83; PULSE 121; RESP 18; TEMP 36.6; O2SAT 97
[2025-06-20] MEDS: Ensure Plus High Protein 120 ML LIQUID PO ×2 (08:08→12:04)
[2025-06-20] MEDS: Vitamin B Comp W-C Capsule 1 CAP PO (08:09)
[2025-06-20] MEDS: Aspirin E.C. 81 MG Tablet PO (08:10)
[2025-06-20] MEDS: Psyllium 1 PACKET PO (08:10)
[2025-06-20] MEDS: Cholecalciferol (VIT D3) 25 MCG TABLET (1,000 UNITS) PO (08:10)
[2025-06-20] MEDS: Mineral Oil/Petrolatum Cr 1.75oz Bottle 1 APPLIC TOPICAL (08:11)
[2025-06-20] MEDS: Timolol 0.5% 5ML OPTH.BTL 1 DRP RIGHT EYE (08:13)
[2025-06-20] MEDS: prednisoLONE eye drops (5 mL) 1 DROP OPTH.BTL 1 DRP LEFT EYE ×2 (08:14→12:06)
[2025-06-20] MEDS: Sodium Chloride 15ML DROPS 1 DRP LEFT EYE ×2 (08:21→12:08)
[2025-06-20] MEDS: BRIMONIDINE 0.2% 5ML BOTTLE 1 DRP RIGHT EYE (08:23)
[2025-06-20 15:20] VITALS: BP 150/75; PULSE 70; RESP 15; TEMP 36.3; O2SAT 94
== END 2025-06-20 15:22 | disposition home health service (06) | DRG 57 ==
PROVIDERS: Admitting Provider Family Medicine Geriatric Medicine; Referring Provider Family Medicine Geriatric Medicine; Visit Provider Family Medicine Geriatric Medicine
DX: I69.118 Other symptoms and signs involving cognitive functions following nontraumatic intracerebral hemorrhage (principal); E44.0 Moderate protein-calorie malnutrition; E22.2 Syndrome of inappropriate secretion of antidiuretic hormone; G91.2 (Idiopathic) normal pressure hydrocephalus; Z68.1 Body mass index [BMI] 19.9 or less, adult; D64.9 Anemia, unspecified; E55.9 Vitamin D deficiency, unspecified; B35.4 Tinea corporis; G20.A1 Parkinson's disease without dyskinesia, without mention of fluctuations; I69.14 Monoplegia of lower limb following nontraumatic intracerebral hemorrhage; F32.A Depression, unspecified; K44.9 Diaphragmatic hernia without obstruction or gangrene; K21.9 Gastro-esophageal reflux disease without esophagitis; K58.9 Irritable bowel syndrome, unspecified; M48.02 Spinal stenosis, cervical region; I25.10 Atherosclerotic heart disease of native coronary artery without angina pectoris; G60.9 Hereditary and idiopathic neuropathy, unspecified; L85.3 Xerosis cutis; Z79.01 Long term (current) use of anticoagulants; H40.9 Unspecified glaucoma; Z79.82 Long term (current) use of aspirin; Z86.73 Personal history of transient ischemic attack (TIA), and cerebral infarction without residual deficits; Z79.899 Other long term (current) drug therapy; N40.0 Benign prostatic hyperplasia without lower urinary tract symptoms; G47.00 Insomnia, unspecified; Z23 Encounter for immunization
CPT/HCPCS: 36415; 71046; 80048; 81001; 82962; 85014; 85018; 85025; 87086; 87633; 87811; 92507; 92523; 92526; 92610; 93005; 94762; 97110; 97116; 97129; 97130; 97162; 97166; 97530; 97535; 97802; A4216

== ENCOUNTER → 2025-05-19 | Outpatient (CLI) | payer MEDICARE, SELFPAY ==
--- NOTE | 2025-05-19 09:22 | CT_ITS ---
EXAM: CT/Brain/Head without Contrast
== END | disposition home or self-care (01) ==
PROVIDERS: Referring Provider Family Medicine Geriatric Medicine; Visit Provider Family Medicine Geriatric Medicine
DX: R41.0 Disorientation, unspecified (principal)
CPT/HCPCS: 70450